=== PATIENT | male | born 1950 | race Caucasian/White ===

== ENCOUNTER 2022-10-09 08:46 | Outpatient (REF) | payer MEDICARE, SELFPAY ==
[2022-10-09 11:21] LABS: MANUAL DIFF FLAG NO
[2022-10-09 12:05] LABS: Basophils Absolute Auto 0.1 X10*3/uL (0.0-0.2); Basophils Percent Auto 1.1 % (0-2); Eosinophils Absolute Auto 0.3 X10*3/uL (0.0-0.4); Eosinophils Percent Auto 2.9 % (0-4); Hemoglobin 10.7 g/dl (14.0-18.0); Imm Gran Abs Auto 0.08 X10*3/uL (0.00-0.03); Imm Gran Pct Auto 0.9 % (0.0-0.4); Lymphocytes Percent Auto 32.5 % (20-40); Mean Corpuscular HGB Conc 30.6 g/dl (31.0-36.0); Mean Corpuscular Hemoglobin 24.7 pg (27.0-33.0); Mean Corpuscular Volume 80.8 fL (80.0-98.0); Mean Platelet Volume 9.8 fL (9.4-12.4); Monocytes Absolute Auto 1.1 X10*3/uL (0.1-1.2); Monocytes Percent Auto 11.7 % (2-11); Neutrophils Absolute Auto 4.7 x10*3/uL (2.0-8.3); Neutrophils Percent Auto 50.9 % (45-73); Platelet Count 484 X10*3/uL (160-400); Red Blood Count 4.33 X10*6/uL (4.60-5.80); Red Cell Distribution Width 15.9 % (11.0-16.0); White Blood Count 9.3 X10*3/uL (4.8-10.8)
[2022-10-09 12:09] LABS: Alanine Aminotransferase 16 U/L (0-40); Albumin Level 4.3 g/dL (3.5-5.0); Alkaline Phosphatase 42 U/L (39-117); Anion Gap 16 (12-20); Aspartate Amino Transferase 34 U/L (5-37); Bilirubin Total 0.6 mg/dL (0.0-1.0); Blood Urea Nitrogen 18 mg/dL (9-16); Carbon Dioxide 23 mmol/L (22-29); Chloride 105 mmol/L (96-108); Cholesterol 185 mg/dL; Estimated Glomerular Filt Rate 48; Glucose Fasting 111 mg/dL (60-99); HDL Cholesterol 69 mg/dL; LDL Cholesterol Calculated 98 mg/dl; Potassium 5.7 mmol/L (3.3-5.1); Sodium 138 mmol/L (135-145); Triglycerides 90 mg/dL
[2022-10-09 12:27] LABS: Prostate Specific Antigen Scr 1.07 ng/mL (<0.05-4.0); TSH reflex Free T4 1.54 uIU/mL (0.32-4.0)
== END 2022-10-09 08:47 | disposition home or self-care (01) ==
LOC: HO.HMGCLDS 08:46
PROVIDERS: PCP Nurse Practitioner Family; Visit Provider Nurse Practitioner Family
DX: Z00.00 Encounter for general adult medical examination without abnormal findings (principal); Z12.5 Encounter for screening for malignant neoplasm of prostate
CPT/HCPCS: 36415; 80053; 80061; 84153; 84443; 85025

== ENCOUNTER 2022-10-17 09:02 | Outpatient (REF) | payer MEDICARE, SELFPAY ==
[2022-10-17 11:32] LABS: Appearance Urine Clear; Color Urine Yellow; Glucose Urine UA Negative (Negative); Leukocyte Esterase Urine Negative (Negative); Nitrite Urine Negative (Negative); Urine Blood Negative (Negative); Urine Ketones Negative (Negative); Urine Protein Negative (Neg-Trace)
[2022-10-17 11:57] LABS: Alanine Aminotransferase 14 U/L (0-40); Albumin Level 4.3 g/dL (3.5-5.0); Alkaline Phosphatase 43 U/L (39-117); Anion Gap 15 (12-20); Aspartate Amino Transferase 28 U/L (5-37); Bilirubin Total 0.6 mg/dL (0.0-1.0); Blood Urea Nitrogen 20 mg/dL (9-16); Calcium 9.6 mg/dL (8.4-10.2); Carbon Dioxide 21 mmol/L (22-29); Chloride 110 mmol/L (96-108); Estimated Glomerular Filt Rate 55; Glucose Random 117 mg/dL (60-115); Iron 35 mcg/dL (45-160); Percent Iron Saturation 7 % (15-50); Potassium 5.5 mmol/L (3.3-5.1); Sodium 140 mmol/L (135-145); Total Iron Binding Capacity 535 mcg/dL (228-428); Unsaturated Iron Binding > 500 ug/dL
[2022-10-17 12:17] LABS: Ferritin 12 ng/mL (20-250); Folate 16.5 ng/mL (> or = 4.0); Vitamin B12 351 pg/mL (200-900)
== END 2022-10-17 09:03 | disposition home or self-care (01) ==
LOC: HO.HMGCLDS 09:02
PROVIDERS: PCP Nurse Practitioner Family; Visit Provider Nurse Practitioner Family
DX: Z00.00 Encounter for general adult medical examination without abnormal findings (principal); E87.5 Hyperkalemia; R79.89 Other specified abnormal findings of blood chemistry; D64.9 Anemia, unspecified
CPT/HCPCS: 36415; 80053; 81003; 82607; 82728; 82746; 83540

== ENCOUNTER 2022-10-21 10:24 | Outpatient (REF) | payer MEDICARE, SELFPAY ==
[2022-10-21 12:08] LABS: Anion Gap 17 (12-20); Carbon Dioxide 20 mmol/L (22-29); Chloride 108 mmol/L (96-108); Potassium 4.6 mmol/L (3.3-5.1); Sodium 140 mmol/L (135-145)
== END 2022-10-21 10:25 | disposition home or self-care (01) ==
LOC: HO.HMGCLDS 10:24
PROVIDERS: PCP Nurse Practitioner Family; Visit Provider Nurse Practitioner Family
DX: E87.5 Hyperkalemia (principal)
CPT/HCPCS: 36415; 80051

== ENCOUNTER 2023-03-03 09:07 | Outpatient (REF) | payer MEDICARE, SELFPAY ==
[2023-03-03 12:30] LABS: Alanine Aminotransferase 19 U/L (0-40); Albumin Level 4.2 g/dL (3.5-5.0); Alkaline Phosphatase 41 U/L (39-117); Anion Gap 17 (12-20); Aspartate Amino Transferase 42 U/L (5-37); Bilirubin Total 0.7 mg/dL (0.0-1.0); Blood Urea Nitrogen 13 mg/dL (9-16); Calcium 9.6 mg/dL (8.4-10.2); Carbon Dioxide 19 mmol/L (22-29); Chloride 104 mmol/L (96-108); Cholesterol 157 mg/dL; Estimated Glomerular Filt Rate > 60; Ferritin 19 ng/mL (20-250); Glucose Fasting 107 mg/dL (60-99); HDL Cholesterol 68 mg/dL; Iron 44 mcg/dL (45-160); LDL Cholesterol Calculated 72 mg/dl; Percent Iron Saturation 9 % (15-50); Potassium 4.6 mmol/L (3.3-5.1); Sodium 135 mmol/L (135-145); TSH reflex Free T4 1.09 uIU/mL (0.32-4.0); Total Iron Binding Capacity 486 mcg/dL (228-428); Total Protein 7.2 g/dL (6.5-8.0); Triglycerides 87 mg/dL; Unsaturated Iron Binding 442 ug/dL
== END 2023-03-03 09:08 | disposition home or self-care (01) ==
LOC: HO.HMGCLDS 09:07
PROVIDERS: PCP Nurse Practitioner Family; Visit Provider Nurse Practitioner Family
DX: D64.9 Anemia, unspecified (principal); E78.5 Hyperlipidemia, unspecified
CPT/HCPCS: 36415; 80053; 80061; 82728; 83540; 84443; 85025

== ENCOUNTER 2023-05-28 07:56 | Outpatient (REF) | payer MEDICARE, SELFPAY | END 2023-05-28 07:57 | disposition home or self-care (01) | LOC: HO.US 07:56 | PROVIDERS: PCP Nurse Practitioner Family; Visit Provider Internal Medicine | DX: I81 Portal vein thrombosis (principal); K70.9 Alcoholic liver disease, unspecified | CPT/HCPCS: 76705; 76981; 93975 ==

== ENCOUNTER 2023-07-21 08:13 | Day surgery (SDC) | payer MEDICARE, SELFPAY ==
[2023-07-15 09:59] VITALS: BMI 24.7
--- NOTE | 2023-07-16 08:14 | HO.ANESPROP2 ---
Documented by User: Dominga Paez NP 07/16/23 08:19 HPI - Anesthesia Eval Consult details Narrative: 73yo M for Upper Endoscopy and Colonoscopy ETOH abuse PMFSH Active Problems Active Problems: All Active Problems (Updated 07/15/23 @ 09:54 by Latha Santo RN) Screening for colon cancer (Acute) Environmental allergies (Acute) Smoker (Acute) Anemia (Acute) Elevated serum creatinine (Acute) Hyperkalemia (Acute) Rash (Acute) Physical exam (Acute) Hypomagnesemia (Acute) Screening PSA (prostate specific antigen) (Acute) Hypertension (Acute) Hyperlipidemia, unspecified (Acute) Acute gout of left ankle (Acute) Past Medical History Medical History Hx of staphylococcal infection Alcohol abuse TIA (transient ischemic attack) Portal vein thrombosis Hiatal hernia GERD (gastroesophageal reflux disease) Hyperlipidemia HTN (hypertension) Surgical History Surgical History History of bunionectomy History of esophagogastroduodenoscopy (EGD) H/O colonoscopy Social History Housing: House Patient Tobacco Use Status: Current everyday Tobacco user Tobacco use type: Cigarette Cigarette Packs Per Day: 0.5 Years Smoked: 55 Smoked in Last 30 Days: Yes e-Cigarette/Vaping Use: Never Used Patient Interested in Nicotine Replacement: No Second Hand Smoke Exposure: No Are you DNR?: No Advance Directives: No Advance Directives Information Provided: Yes Nutrition Risks: No Nutritional Risk Current occupational status: retired Cognitive needs: No Hearing needs: No Vision needs: No Meds Allergies Allergy/AdvReac Type Severity Reaction Status Date / Time No Known Allergies Allergy Verified 07/21/23 08:28 [No Known Allergies*] Home Medications Medication Instructions Recorded Confirmed Last Taken Type ferrous [id number] conc 1 cap PO DAILY 07/15/23 07/15/23 Unknown History capsule Exam Height,Weight and Vital Signs: Height 5 ft 4 in Weight 65.317 kg Pertinent Lab Results Pertinent Lab Results: Laboratory Tests 03/03/23 09:13 WBC 8.5 Hgb 11.8 L Hct 37.0 L Plt Count 442 H Sodium 135 Potassium 4.6 Chloride 104 Carbon Dioxide 19 L BUN 13 Creatinine 1.16 Laboratory Tests 03/03/23 09:13 Total Bilirubin 0.7 AST 42 H ALT 19 Alkaline Phosphatase 41 Total Protein 7.2 Albumin 4.2 Narrative Narrative: US abdomen comp w elastography 05/2023 IMPRESSION: 1. There is generalized increase in hepatic echotexture, consistent with fatty infiltration or hepatocellular disease. Please correlate clinically. A lobulated hepatic contour and periportal varices favors cirrhosis. No focal hepatic mass or intrahepatic biliary dilatation is seen. 2. Liver elastography: Although measurements are suggestive of compensated advanced chronic liver disease, there is statistical variability of the sampling which decreases accuracy. 3. The gallbladder is contracted and suboptimally evaluated. Assessment and Plan Assessment Anesthesia Assessment: Chart Reviewed Documented by User: Luis Fernando Portillo MD 07/21/23 08:47 [facility] Past Medical History Medical History Hx of staphylococcal infection Alcohol abuse TIA (transient ischemic attack) Portal vein thrombosis Hiatal hernia GERD (gastroesophageal reflux disease) Hyperlipidemia HTN (hypertension) Family History Family history of problems with anesthesia: No Surgical History Surgical History History of bunionectomy History of esophagogastroduodenoscopy (EGD) H/O colonoscopy History of Problems with Anesthesia: No Social History Housing: House Patient Tobacco Use Status: Current everyday Tobacco user Tobacco use type: Cigarette Cigarette Packs Per Day: 0.5 Years Smoked: 55 Smoked in Last 30 Days: Yes e-Cigarette/Vaping Use: Never Used Patient Interested in Nicotine Replacement: No Second Hand Smoke Exposure: No Are you DNR?: No Advance Directives: No Advance Directives Information Provided: Yes Nutrition Risks: No Nutritional Risk Current occupational status: retired Cognitive needs: No Hearing needs: No Vision needs: No Meds Allergies Allergy/AdvReac Type Severity Reaction Status Date / Time No Known Allergies Allergy Verified 07/21/23 08:28 [No Known Allergies*] Home Medications Medication Instructions Recorded Confirmed Last Taken Type ferrous [id number] conc 1 cap PO DAILY 07/15/23 07/15/23 Unknown History capsule Exam Airway Mallampati Class: II TM Dist: >3cm Neck ROM: Full Denture: Upper Loose/Missing/Broken Teeth: Yes (upper denture, lower teeth missing and rotten globally) Heart: [id number] Lungs: cta b/l Assessment and Plan Assessment Anesthesia Assessment: Anesthesia Plan Discussed Final Anesthetic Review Family History of Problems with Anesthesia: No History of Problems with Anesthesia: No NPO: Yes ASA Class: III Final Preanesthetic Review: No Changes in Pt Med Stat, Meds/Allgs Chart Reviewed, Consent Obtained/Reviewed and Anes Risks/Benef Reviewed Patient Risk: Intermediate Procedure Risk: Intermediate Assessment/Block/Sedation in SS: Assess/Block/Sedation-SS Anesthetic Plan Anesthetic Plan: MAC: and Agree w/ Assess. and Plan Disposition: Standard PACU
[2023-07-21] MEDS: Lactated Ringers 1,000 ML 100 ML IVCONT (08:35)
[2023-07-21 08:44] VITALS: BP 144/99; PULSE 87; RESP 18; TEMP 36.8; O2SAT 96
[2023-07-21 08:58] VITALS: BMI 24.0
[2023-07-21 09:55] VITALS: BP 141/84; PULSE 97; RESP 16; TEMP 36.7; O2SAT 97
--- NOTE | 2023-07-21 09:57 | PM.OP ---
Brief Operative Note Date of Service: 07/21/23 Pre-op diagnosis: Ojeda's, Screening Post-op diagnosis: other (Same, Portal gastropathy, Diverticulosis, Internal and External hemorrhoids) Procedure: EGD with biopsies, Colonoscopy to the cecum and TI Surgeon: Noah Burk MD Anesthesia: MAC Was an [employer] used for this Procedure?: No Estimated blood loss (mL): 2.0 Pathology: other (A. EG Junction at 35cm) Condition: stable Disposition: PACU
[2023-07-21 10:10] VITALS: BP 148/89; PULSE 105; RESP 20; TEMP 36.7; O2SAT 96
--- NOTE | 2023-07-21 11:38 | OP_ITS ---
DATE OF SERVICE: 07/21/2023 SURGEON: Noah Burk MD INDICATIONS: The patient presents for evaluation of gastroesophageal reflux with associated Ojeda's esophagus, personal history of colon polyps, and need for colorectal cancer screening. Full consent has been obtained from him for both procedures, including risks of bleeding and perforation. PREOPERATIVE DIAGNOSIS: POSTOPERATIVE DIAGNOSIS: PROCEDURE PERFORMED: Esophagogastroduodenoscopy with biopsies, and colonoscopy to the cecum and terminal ileum. ESTIMATED BLOOD LOSS: COMPLICATIONS: ANESTHESIA: Monitored anesthesia care. ASSISTANTS: SPECIMENS: PREOPERATIVE DIAGNOSES: Gastroesophageal reflux, history of Ojeda's esophagus, personal history of colon polyps, colorectal cancer screening, family history of colon cancer, and anemia. POSTOPERATIVE DIAGNOSES: Gastroesophageal reflux, history of Ojeda's esophagus, personal history of colon polyps, colorectal cancer screening, family history of colon cancer, and anemia, hiatal hernia, portal gastropathy, diverticulosis, internal and external hemorrhoids. DESCRIPTION OF PROCEDURE: The patient was placed in the left lateral decubitus position. The Olympus video gastroscope was passed in the posterior oropharynx and upper esophagus under direct vision. The scope was passed slowly into the distal esophagus. The gastroesophageal junction appeared at 35 cm. There was no sign of any esophagitis nor varices. There was a small area, less than 1 cm, of noncircumferential Ojeda's appearing mucosa. There were no lesions nor inflammation. The scope entered the stomach. There was a moderate-sized hiatal hernia. The scope was advanced to the pylorus and the duodenum was cannulated to the descending portion. The duodenum including the bulb appeared normal without mass or ulceration. The scope was withdrawn back to the stomach. The gastric antrum and body appeared normal other than some areas of edema and erythema. There were no masses nor ulceration. There was good peristalsis. The scope was retroflexed visualizing the proximal stomach carefully, which appeared consistent with a portal gastropathy with some friability of the mucosa. There was no evidence of varices, mass, nor ulceration. The scope was straightened and withdrawn back to the esophagus. There was no evidence of any esophageal varices. Biopsies were obtained from the area of Ojeda's mucosa. The remainder of the esophageal mucosa appeared normal. The scope was withdrawn from the patient. He was turned around for the colonoscopy. The digital rectal exam revealed no abnormalities other than prominent external hemorrhoids. The Olympus video pediatric colonoscope was entered into the rectum and advanced easily to the cecum. Once in the cecum, I did identify normal-appearing cecal pouch with appendiceal orifice and a normal-appearing ileocecal valve. The terminal ileum was cannulated and appeared normal. The scope was withdrawn back in the colon. The entire cecum and ileocecal valve appeared normal. The scope was slowly withdrawn assessing all mucosal surfaces carefully. Preparation was excellent. I did not visualize any sign of polyps, colitis, nor angiodysplasia. There was a moderate amount of sigmoid diverticulosis. In the rectum, scope was retroflexed visualizing internal hemorrhoids but no other pathology. The rectal mucosa appeared normal. Scope was straightened and withdrawn from the patient. He tolerated the procedures well and was returned to the recovery area in stable condition. IMPRESSION: 1. Ojeda's esophagus. 2. Hiatal hernia. 3. Portal gastropathy. 4. Diverticulosis. 5. Internal and external hemorrhoids. PLAN: The results of the pathology will be checked. He was advised to continue his daily omeprazole. He was advised to resume his aspirin in 72 hours. He was advised to avoid alcohol, smoking, and NSAIDs long-term. He did have some recent studies documenting his cirrhosis. 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 However, I will arrange for an outpatient MRI of his liver for further evaluation as well. Given his age and overall condition, I do not think he will need any further upper endoscopies nor colonoscopies from a screening standpoint. He was advised to see me again this Spring. This has been discussed with his . MD RISHI Mahoney/GORAN / [phone] BILLY
== END 2023-07-21 10:52 | disposition home or self-care (01) ==
PROVIDERS: PCP Nurse Practitioner Family; Visit Provider Internal Medicine
PROC: (CPT 43239; principal; 2023-07-21 08:40)
DX: Z12.11 Encounter for screening for malignant neoplasm of colon (principal); Z86.010 Personal history of colon polyps; K57.30 Diverticulosis of large intestine without perforation or abscess without bleeding; K64.8 Other hemorrhoids; K64.4 Residual hemorrhoidal skin tags; K22.70 Barrett's esophagus without dysplasia; K21.9 Gastro-esophageal reflux disease without esophagitis; K31.89 Other diseases of stomach and duodenum; K44.9 Diaphragmatic hernia without obstruction or gangrene; I10 Essential (primary) hypertension; E78.5 Hyperlipidemia, unspecified; Z86.73 Personal history of transient ischemic attack (TIA), and cerebral infarction without residual deficits; F10.10 Alcohol abuse, uncomplicated; Z79.899 Other long term (current) drug therapy; Z79.82 Long term (current) use of aspirin; F17.210 Nicotine dependence, cigarettes, uncomplicated
CPT/HCPCS: 43239; G0105; 88305; J2704

== ENCOUNTER 2023-08-27 08:00 | Outpatient (AMB) | payer MEDICARE, SELFPAY ==
--- NOTE | 2023-08-27 08:02 | A.OFFPC_ITS ---
Vital Signs 08/27/23 08:05 Height 5 ft 4 in Weight 145 lb BMI 24.9 BP 130/90 H Blood Pressure Location Lt brachial Position Sitting Pulse 98 Pulse Source Pulse Oximeter Pulse Oximetry (%) 98 Oxygen Delivery Method Room Air Intake Visit Reasons: PE Intake Note: Patient here for physical exam. no new issues or concerns. Allergies No Known Allergies [No Known Allergies*] Allergy (Verified 08/27/23 08:18) Medication List - Last Reconciled 08/27/23 by HARSHIL Le atorvastatin 20 mg PO DAILY clobetasol 0.05% 1 appl topical BID 2 weeks docusate sodium 100 mg PO BID 90 days fenofibrate nanocrystallized 145 mg PO DAILY ferrous [id number] conc 1 cap PO DAILY lisinopril 40 mg PO DAILY 90 days nifedipine ER 30 mg PO DAILY omeprazole 20 mg PO DAILY Tobacco use date assessed: 01/02/23 Fall risk assessment: No Falls in past year Last assessed Fall Risk: 08/27/23 Dental Screening Dental Screen Date: 08/27/23 Did you have a dental visit in the last 12 months?: No Did you have a dental problem in the last 6 months where you did not have access to dental care?: No Was dental information given to patient?: Patient has dentist HPI PE HPI Details here for a PE. Recent colon screen/endoscopy, pt sees GI. Pt is a smoker, refuses LDCTs. Pt reports taking his BP meds just before arriving here. pt refuses VANNESA today. PSA ordered. [facility] Medical History Barretts esophagus Hx of staphylococcal infection Alcohol abuse TIA (transient ischemic attack) Portal vein thrombosis Hiatal hernia GERD (gastroesophageal reflux disease) Hyperlipidemia HTN (hypertension) Surgical History History of bunionectomy History of esophagogastroduodenoscopy (EGD) H/O colonoscopy Social History Housing: House Patient Tobacco Use Status: Current everyday Tobacco user Tobacco use type: Cigarette Cigarette Packs Per Day: 0.5 Years Smoked: 55 e-Cigarette/Vaping Use: Never Used Second Hand Smoke Exposure: No service: No Current occupational status: retired Cognitive needs: No Hearing needs: No Vision needs: No Questionnaire Thrive Questionnaire Date Thrive assessed: 02/07/22 AUDIT C Alcohol Use Questionnaire (AUDIT-C) 1. How often do you have a drink containing alcohol?: 4 or more times a week 2. How many drinks containing alcohol do you have on a typical day when you are drinking?: 3 or 4 3. How often do you have six or more drinks on one occasion?: Never Total Score: 5 Score Reviewed/Action Taken: Yes FLORENCE-7 AMB Questionnaire FLORENCE-7 Date FLORENCE - 7 assessed: 08/27/23 Source: Developed by Drs. Noah Bennett, Gaviota Funes, Stevan Jara and colleagues, with an educational yung from [employer]. Review of Systems Const Denies chills and Denies fever(s) Eyes Denies blurry vision ENT Denies vertigo, Denies dizziness and Denies sore throat Card Denies chest pain at rest, Denies chest pain with activity, Denies diaphoresis, Denies dyspnea and Denies dyspnea on exertion Resp Denies cough, Denies dyspnea, Denies dyspnea on exertion and Denies wheezing GI Denies abdominal pain, Denies melena, Denies hematochezia, Denies constipation, Denies diarrhea and Denies loose stools Denies hematuria Musc Denies numbness and Denies tingling Skin/Breast Denies lesions Neuro Denies vertigo, Denies dizziness, Denies numbness and Denies tingling Psych Denies anxiety, Denies depression, Denies homicidal ideation, Denies suicidal ideation and Denies other (substance abuse) Aller/Immun Denies wheezing Physical exam (Primary Care) Vital Signs: Last Vital Signs Pulse 98 08/27/23 08:05 BP 130/90 H 08/27/23 08:05 Pulse Ox 98 08/27/23 08:05 Oxygen Delivery Method Room Air 08/27/23 08:05 BMI result Body Mass Index 24.9 Tobacco/Smoking Status: Tobacco use Status Tobacco use date assessed 01/02/23 08/27/23 08:05 Patient Tobacco Use Status Current everyday Tobacco 08/27/23 08:05 Tobacco use type Cigarette 08/27/23 08:05 e-Cigarette/Vaping Use Never Used 08/27/23 08:05 Thrive Assessment: Date of Thrive Assessment Date Thrive assessed 02/07/22 08/27/23 08:05 Const General: cooperative Nutritional Appearance: well nourished Orientation/consciousness: patient oriented x3 HENMT Head: Yes normal to inspection, Yes normocephalic and Yes atraumatic Ears: TM normal on the right and TM normal on the left Eyes General: appearance normal, both eyes and all related structures Alignment and Position: alignment normal and position normal Neck Neck: Yes normal visual inspection and Yes no lymphadenopathy Resp Effort & Inspection: normal respiratory effort Auscultation: clear to auscultation bilaterally Cardio Rate: regular rate Rhythm: regular rhythm Heart sounds: S1 normal heart sound present, S2 normal heart sound present and no murmurs GI Palpation (GI): Soft to palpation and nontender Auscultation: normal bowel sounds Male General Exam: Yes normal external exam Penis: normal penis Scrotum: scrotum normal, testes descended bilaterally and no inguinal hernias Testes: no testicular mass Skin Rashes: no rashes Neuro General: patient oriented x3, moves all extremities, no focal motor deficits and deep tendon reflexes 2+ bilaterally Romberg Test: Negative Extrem Right lower extremity: no edema Left lower extremity: no edema Psych Affect: normal affect Attitude: cooperative Thought process: Normal thought process present Assessment and Plan Assessment & Plan (1) Physical exam: Code(s): Z00.00 - Encounter for general adult medical examination without abnormal findings (2) Screening PSA (prostate specific antigen): Code(s): Z12.5 - Encounter for screening for malignant neoplasm of prostate Orders: Orders TSH reflex Free T4 Today Z00.00 - Encounter for general adult medical examination without abnormal findings UA CC w/rflx Micro + Cult Today Z00.00 - Encounter for general adult medical examination without abnormal findings Lipid Panel Today Z00.00 - Encounter for general adult medical examination without abnormal findings Complete Blood Count Auto Diff Today Z00.00 - Encounter for general adult medical examination without abnormal findings Comprehensive [place]. Panel Fast Today Z00.00 - Encounter for general adult medical examination without abnormal findings Prostate Specific Antigen Scr Today Z12.5 - Encounter for screening for malignant neoplasm of prostate Coding Level of Care Code Est Pt Prev Care >65y(94345) Diagnoses Physical exam Z00. Screening PSA (prostate specific antigen) Z12.5
[2023-08-27 08:05] VITALS: BP 130/90; PULSE 98; O2SAT 98; BMI 24.9
== END 2023-08-27 08:32 | disposition home or self-care (01) ==
PROVIDERS: Visit Provider Nurse Practitioner Family
DX: Z00.00 Encounter for general adult medical examination without abnormal findings (principal); Z12.5 Encounter for screening for malignant neoplasm of prostate
CPT/HCPCS: 99397

== ENCOUNTER 2023-12-09 08:30 | Outpatient (REF) | payer MEDICARE, SELFPAY ==
[2023-12-09 10:21] LABS: MANUAL DIFF FLAG NO
[2023-12-09 10:37] LABS: Basophils Absolute Auto 0.1 X10*3/uL (0.0-0.2); Basophils Percent Auto 0.6 % (0-2); Eosinophils Absolute Auto 0.2 X10*3/uL (0.0-0.4); Eosinophils Percent Auto 1.5 % (0-4); Hematocrit 42.7 % (42.0-52.0); Hemoglobin 14.1 g/dl (14.0-18.0); Imm Gran Abs Auto 0.17 X10*3/uL (0.00-0.03); Imm Gran Pct Auto 1.4 % (0.0-0.4); Lymphocytes Percent Auto 25.6 % (20-40); Mean Corpuscular Hemoglobin 30.3 pg (27.0-33.0); Mean Corpuscular Volume 91.6 fL (80.0-98.0); Mean Platelet Volume 10.2 fL (9.4-12.4); Monocytes Absolute Auto 1.4 X10*3/uL (0.1-1.2); Neutrophils Absolute Auto 6.9 x10*3/uL (2.0-8.3); Neutrophils Percent Auto 58.9 % (45-73); Platelet Count 423 X10*3/uL (160-400); Red Blood Count 4.66 X10*6/uL (4.60-5.80); White Blood Count 11.8 X10*3/uL (4.8-10.8)
[2023-12-09 10:54] LABS: Alanine Aminotransferase 14 U/L (0-40); Albumin Level 4.2 g/dL (3.5-5.0); Alkaline Phosphatase 49 U/L (39-117); Anion Gap 17 (12-20); Aspartate Amino Transferase 21 U/L (5-37); Bilirubin Total 0.7 mg/dL (0.0-1.0); Blood Urea Nitrogen 19 mg/dL (9-16); Calcium 9.9 mg/dL (8.4-10.2); Carbon Dioxide 22 mmol/L (22-29); Chloride 104 mmol/L (96-108); Cholesterol 163 mg/dL (<200); Estimated Glomerular Filt Rate 55; Glucose Fasting 120 mg/dL (60-99); HDL Cholesterol 63 mg/dL (>40); LDL Cholesterol Calculated 79 mg/dL (<100); Potassium 4.7 mmol/L (3.3-5.1); Sodium 138 mmol/L (135-145); Total Protein 7.5 g/dL (6.5-8.0); Triglycerides 105 mg/dL (<150)
[2023-12-09 11:12] LABS: Prostate Specific Antigen Scr 1.17 ng/mL (<0.05-4.0)
[2023-12-09 11:22] LABS: TSH reflex Free T4 0.89 uIU/mL (0.32-4.0)
== END 2023-12-09 08:31 | disposition home or self-care (01) ==
LOC: HO.HMGCLDS 08:30
PROVIDERS: PCP Nurse Practitioner Family; Visit Provider Nurse Practitioner Family
DX: Z00.00 Encounter for general adult medical examination without abnormal findings (principal); Z12.5 Encounter for screening for malignant neoplasm of prostate
CPT/HCPCS: 36415; 80053; 80061; 84153; 84443; 85025

== ENCOUNTER 2023-12-30 09:20 | Outpatient (REF) | payer MEDICARE, SELFPAY ==
[2023-12-30 10:19] LABS: MANUAL DIFF FLAG NO
[2023-12-30 10:32] LABS: Basophils Absolute Auto 0.1 X10*3/uL (0.0-0.2); Basophils Percent Auto 0.7 % (0-2); Eosinophils Absolute Auto 0.3 X10*3/uL (0.0-0.4); Hemoglobin 13.6 g/dl (14.0-18.0); Imm Gran Abs Auto 0.16 X10*3/uL (0.00-0.03); Imm Gran Pct Auto 1.6 % (0.0-0.4); Lymphocytes Absolute Auto 3.1 X10*3/uL (1.2-4.9); Lymphocytes Percent Auto 31.3 % (20-40); Mean Corpuscular Hemoglobin 30.7 pg (27.0-33.0); Mean Corpuscular Volume 90.3 fL (80.0-98.0); Mean Platelet Volume 10.1 fL (9.4-12.4); Monocytes Absolute Auto 1.2 X10*3/uL (0.1-1.2); Monocytes Percent Auto 11.5 % (2-11); Neutrophils Absolute Auto 5.2 x10*3/uL (2.0-8.3); Neutrophils Percent Auto 51.9 % (45-73); Platelet Count 401 X10*3/uL (160-400); Red Blood Count 4.43 X10*6/uL (4.60-5.80); Red Cell Distribution Width 14.6 % (11.0-16.0)
== END 2023-12-30 09:21 | disposition home or self-care (01) ==
LOC: HO.HMGCLDS 09:20
PROVIDERS: PCP Nurse Practitioner Family; Visit Provider Nurse Practitioner Family
DX: D72.829 Elevated white blood cell count, unspecified (principal)
CPT/HCPCS: 36415; 85025

== ENCOUNTER 2024-04-27 13:46 | Emergency (ER) | payer MEDICARE, SELFPAY ==
--- NOTE | ~2024-04-27 | CT_ITS ---
EXAMINATION: CT ABDOMEN AND PELVIS WITH CONTRAST CLINICAL INFORMATION: abdo pain, hx of prtal vein thrombosis COMPARISON: CT abdomen and pelvis October 30, 2018 MRA abdomen November 03, 2018 TECHNIQUE: Multidetector volumetric images were obtained from the superior aspect of the liver through the pubic symphysis following administration 85 mL of Omnipaque 350 intravenous contrast. Sagittal and coronal reformatted images were obtained on the technologist's workstation. Oral contrast: No This CT examination was performed using dose optimization techniques as appropriate, variously including the following: *Automated exposure control *Adjustment of mA and/or kV according to patient size (this includes techniques or standardized protocols for targeted exams where dose is matched to indication/reason for exam; i.e. extremities or head) *Use of iterative reconstruction technique DLP: 356 mGy-cm FINDINGS: LUNG BASES: The visualized lung bases are unremarkable. LIVER, GALLBLADDER, AND BILIARY TREE: The liver is normal in size, shape, and attenuation. No focal hepatic lesion or biliary ductal dilatation is present. The gallbladder is unremarkable with no evidence of radiopaque gallstones, gallbladder wall thickening, or obvious pericholecystic inflammatory changes. PANCREAS: Unremarkable. SPLEEN: Unremarkable. ADRENAL GLANDS: Unremarkable. KIDNEYS AND URETERS: The kidneys are normal in size, shape, and attenuation. No hydronephrosis, hydroureter, or calculi seen. No perinephric stranding. BLADDER: Unremarkable. GASTROINTESTINAL TRACT: There are scattered diverticula of the colon. There is no diverticulitis. There is no bowel wall thickening /edema. There is no bowel obstruction. There is a moderate to large volume of stool in the colon. The appendix is normal . The small bowel loops are unremarkable. There is diffuse thickening of the wall of the stomach most pronounced at the antrum. This is similar to CAT scan October 30, 2018. No surrounding inflammation. There is no hiatal hernia. ABDOMINAL WALL: No significant hernia is appreciated. LYMPH NODES: Normal. VASCULAR: Chronic changes of thrombosed portal vein with cavernous transformation of the portal vein. Multiple varices at the farheen hepatis. Vascular calcifications of aorta and iliac arteries without aneurysm. PELVIC VISCERA: The prostate measures 4 cm transverse. OSSEOUS STRUCTURES: Unremarkable. CT/CT abdomen pelvis w IV con IMPRESSION: 1. No acute abnormality CT scan abdomen pelvis. 2. 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 3. Diffuse thickening of the wall of the stomach most pronounced at the antrum. This is similar to CAT scan October 30, 2018. No surrounding inflammation. 4. Diverticulosis of colon. No acute change of the bowel. Fleischner guidelines were followed. Electronically signed by: Alfonso Wall MD 04/27/2024 06:21 PM EDT
--- NOTE | ~2024-04-27 | XR_ITS ---
EXAMINATION: XR CHEST CLINICAL INFORMATION: Chest pain COMPARISON: Chest x-ray 02/01/2020 TECHNIQUE: 2 views of the chest were obtained. FINDINGS: No significant abnormality is noted involving the heart, lungs, mediastinum, bony thorax or soft tissues. XR/XR chest 2V IMPRESSION: Unremarkable examination. Electronically signed by: Alfonso Wall MD 04/27/2024 02:54 PM EDT RP
--- NOTE | 2024-04-27 13:52 | ED_ITS ---
HPI - General Adult General Chief complaint: Upper Respiratory Symptoms Stated complaint: SOB, abd pain Time Seen by Provider: 04/27/24 15:18 History of Present Illness ED Provider: Amalia OGDEN narrative: The patient is a 73-year-old male with a history of alcoholism. He also has a history of portal vein thrombosis. He is also a smoker. The patient was diagnosed with portal vein thrombosis in 2019 and he was on warfarin for awhile. He says that the warfarin was stopped some time ago. His current medications are atorvastatin, omeprazole, fenofibrate, nifedipine, and lisinopril. Apparently the patient has been feeling less energetic and fatigued for a couple of months. He has had a slight cough. Over the last 2 weeks he thought he might have a bad cold. He has been sneezing as well as coughing. Additionally over the past 5 days he has had intermittent abdominal pains that remind him of symptoms he had when he was diagnosed with a portal vein thrombosis 5 years ago. For all these reasons he called his regular doctor's office this morning and was advised to come to the emergency room. No definite fever. He has had a cough but no sputum. No vomiting. No diarrhea. No pain or swelling in his legs. The patient is a smoker who still smokes. He has a history of alcoholism. He drinks 4 or 5 beers a day Related Data Home Medications ?Medication ?Instructions ?Recorded ?Confirmed ferrous [id number] 1 cap PO DAILY 07/15/23 08/27/23 capsule Previous Rx's ?Medication ?Instructions ?Recorded clobetasol 0.05 % topical cream 1 appl topical BID 2 weeks #30 10/16/22 grams docusate sodium 100 mg capsule 100 mg PO BID 90 days #180 caps 01/17/23 omeprazole 20 mg capsule,delayed 20 mg PO DAILY #90 caps 09/21/23 release lisinopril 40 mg tablet 40 mg PO DAILY 90 days #90 tabs 02/16/24 nifedipine 30 mg tablet,extended 30 mg PO DAILY #90 tabs 02/16/24 release atorvastatin 20 mg tablet 20 mg PO DAILY #90 tabs 03/09/24 fenofibrate nanocrystallized 145 145 mg PO DAILY #90 tabs 03/09/24 mg tablet Allergies Allergy/AdvReac Type Severity Reaction Status Date / Time No Known Allergies Allergy Verified 04/27/24 13:56 [No Known Allergies*] Review of Systems 2 Review of Systems: Yes all other systems are reviewed and are negative [facility] Past Medical History Medical History Barretts esophagus Hx of staphylococcal infection Alcohol abuse TIA (transient ischemic attack) Portal vein thrombosis Hiatal hernia GERD (gastroesophageal reflux disease) Hyperlipidemia HTN (hypertension) Surgical History History of bunionectomy History of esophagogastroduodenoscopy (EGD) H/O colonoscopy Social History Social History Housing: House Patient Tobacco Use Status: Current everyday Tobacco user Tobacco use type: Cigarette Cigarette Packs Per Day: 0.5 Years Smoked: 55 Smoked in Last 30 Days: Yes e-Cigarette/Vaping Use: Never Used Second Hand Smoke Exposure: No Use of substances other than those prescribed or required for medical reasons: No Advance Directives: No Advance Directives Information Provided: No Do you have a plan to hurt others: No Plan service: No Current occupational status: retired Cognitive needs: No Hearing needs: No Vision needs: No Physical Exam ED Vital Signs: Vital Signs - 24 hr 04/27/24 13:53 04/27/24 15:49 04/27/24 15:50 Temperature 98 F 98.2 F Pulse Rate 99 89 Respiratory Rate 19 16 Blood Pressure 134/93 H 151/88 H Pulse Oximetry 98 96 96 Oxygen Delivery Method Room Air Room Air 04/27/24 16:22 04/27/24 18:50 Temperature 96.4 F L 97.2 F Pulse Rate 84 98 Respiratory Rate 14 14 Blood Pressure 168/98 H 146/85 H Pulse Oximetry 97 96 Oxygen Delivery Method Room Air Room Air BMI result Body Mass Index 23.5 Const Other: The patient is a slim 73-year-old male. He has an occasional dry cough. He does not seem in any respiratory distress. He looks somewhat chronically ill but not obviously acutely ill. HENMT Other: Face is symmetrical. Mucous membranes moist. Eyes General: appearance normal, both eyes and all related structures Sclerae: sclerae normal Pupils: Equal, round and reactive pupils present EOM: EOMs intact bilaterally Neck Neck: Yes no JVD Resp Other: No increased work of breathing. Slight scattered wheezes bilaterally. No definite crackles. GI Other: The abdomen is flat and soft. There is some mild diffuse tenderness without focal tenderness, rebound, or guarding Skin Other: Skin is sallow, pale and dry Neuro Other: The patient is awake and alert. Cognition seems intact. Cranial nerves are grossly intact. He moves his extremities normally and appropriately and seemed to have no focal findings. Cranial nerves: Yes Equal, round and reactive pupils present Extrem Other: No calf swelling or tenderness, no peripheral edema, no asymmetry Course Course Course Narrative: RME, this is a rapid medical exam performed by Jose Armando Singh please refer to primary provider for complete H&P- 73-year-old male presents for evaluation of shortness of breath, cough with phlegm production, postnasal drip as well as abdominal pain. He reports a history of portal vein thrombosis and reports that his symptoms feel similar as he also abdominal discomfort. He was sent from urgent care due to his history of portal vein thrombosis. Plan for labs, viral swabs, chest x-ray. Medications Administered Discontinued Medications Generic Name Dose Route Start Last Admin Trade Name Freq PRN Reason Stop Dose Admin Sodium Chloride 1,000 mls @ 999 mls/hr 04/27/24 15:45 04/27/24 17:32 Ns IV 04/27/24 16:45 Infused .Q1H1M DELICIA Infusion Iohexol 85 ml 04/27/24 16:15 04/27/24 16:15 Iohexol 350 Mg/Ml 100 Ml Infus..Btl IV 04/27/24 16:16 85 ml ONCE ONE Administration Medical Decision Making Medical Decision Making [facility] Narrative: The patient is a 73-year-old male. He apparently has a history of having had a portal vein thrombosis. He was on warfarin for awhile but eventually he was taken off anticoagulation. Presents because he has had some intermittent abdominal pains that made him concerned about the possibility of recurrence of his abdominal blood clot. He has also had some coughing. He is still a smoker. He still drinks a fair amount of alcohol. He reports he drinks 4-5 beers per day. Clinically the patient does not appear obviously significantly ill although he looks fairly chronically ill. His chest x-ray was negative. Viral serology is negative for COVID, RSV, and influenza. He has a normal white count with an unremarkable differential. Coagulation studies are normal. Chemistries reveal a sodium of 125. His BUN and creatinine are not significantly abnormal. I suspect his hyponatremia is likely related to his volume of beer drinking. LFT show a normal bilirubin, AST 45, ALT 25, alk phos 48. CRP mildly abnormal at 3.75. Lipase mildly elevated at 130. A TSH was done because he reports chronic weakness over the last few months. His TSH is normal. An abdominal CT shows: IMPRESSION: 1. No acute abnormality CT scan abdomen pelvis. 2. 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 3. Diffuse thickening of the wall of the stomach most pronounced at the antrum. This is similar to CAT scan October 30, 2018. No surrounding inflammation. 4. Diverticulosis of colon. No acute change of the bowel. The patient was given 1 L of IV normal saline. Overall he does not seem to have any acute findings on his workup and he seems appropriate for discharge. He was told to try to reduce his beer intake as this seems to be causing hyponatremia. He is encouraged to reduce smoking. He should follow up with his PCP and probably revisit with a meat molder. Lab Data 04/27/24 14:01 04/27/24 14:01 Labs: Lab Results 04/27/24 04/27/24 Range/Units 14:01 15:45 WBC 9.2 (4.8-10.8) X10*3/uL RBC 4.27 L (4.60-5.80) X10*6/uL Hgb 13.1 L (14.0-18.0) g/dl Hct 37.4 L (42.0-52.0) % MCV 87.6 (80.0-98.0) fL MCH 30.7 (27.0-33.0) pg MCHC 35.0 (31.0-36.0) g/dl RDW 13.8 (11.0-16.0) % Plt Count 348 (160-400) X10*3/uL MPV 8.9 L (9.4-12.4) fL Immature Gran % (Auto) 1.9 H (0.0-0.4) % Neut % (Auto) 63.2 (45-73) % Lymph % (Auto) 21.7 (20-40) % [place] % (Auto) 11.3 H (2-11) % Eos % (Auto) 1.2 (0-4) % Baso % (Auto) 0.7 (0-2) % Lymph # (Auto) 2.0 (1.2-4.9) X10*3/uL [place] # (Auto) 1.0 (0.1-1.2) X10*3/uL Eos # (Auto) 0.1 (0.0-0.4) X10*3/uL Baso # (Auto) 0.1 (0.0-0.2) X10*3/uL Abs Immat Gran (auto) 0.17 H (0.00-0.03) X10*3/uL Absolute Neuts (auto) 5.8 (2.0-8.3) x10*3/uL Absolute Nucleated RBC 0.000 (0.0-0.012) X10*3/uL Nucleated RBC % (auto) 0.0 (0.0-0.2) /100WBC PT 12.2 (11.1-13.3) SEC INR 1.0 (0.9-1.1) APTT 27.2 (26.0-36.8) SEC Sodium 125 L (135-145) mmol/L Potassium 4.3 (3.3-5.1) mmol/L Chloride 94 L (96-108) mmol/L Carbon Dioxide 20 L (22-29) mmol/L Anion Gap 15 (12-20) BUN 11 (9-16) mg/dL Creatinine 1.17 (0.5-1.4) mg/dL Estim Creat Clear Calc 47.0 Estimated GFR > 60 Random Glucose 139 H (60-115) mg/dL Calcium 9.8 (8.4-10.2) mg/dL Total Bilirubin 0.5 (0.0-1.0) mg/dL AST 45 H (5-37) U/L ALT 25 (0-40) U/L Alkaline Phosphatase 48 (39-117) U/L C-Reactive Protein 3.75 H (< or = 0.50) mg/dL Total Protein 7.2 (6.5-8.0) g/dL Albumin 4.1 (3.5-5.0) g/dL Lipase 130 H (8-78) U/L TSH 0.76 (0.32-4.0) uIU/mL Urine Color Yellow Urine Appearance Clear Urine pH 5.5 (5.0-9.0) Ur Specific [place] 1.010 (1.005-1.025) Urine Protein 30 (1+) H (Neg-Trace) mg/dL Urine Glucose (UA) Negative (Negative) mg/dL Urine Ketones Negative (Negative) mg/dL Urine Blood Negative (Negative) Urine Nitrite Negative (Negative) Ur Leukocyte Esterase Negative (Negative) Urine RBC 0-2 (0-2) /HPF Urine WBC 0-5 (0-5) /HPF Ur Squamous Epith Cells 0-2 (0-2) /HPF Urine Bacteria None Seen (None Seen) Hyaline Casts 0-2 (0-2) /LPF Urine Osmolality 225 L (373-1093) mosm/kg Ur Random Sodium < 20.0 mmol/L Urine Creatinine 78.76 mg/dL Ethyl Alcohol < 10 mg/dL Influenza Type A (PCR) NEGATIVE (Negative) Influenza Type B (PCR) NEGATIVE (Negative) RSV RNA Qual (PCR) NEGATIVE (Negative) SARS-CoV-2 RNA (RT-PCR) NEGATIVE (Negative) Discharge Plan Discharge Clinical Impression: Hyponatremia, Abdominal pain, Cough Patient Disposition: Home, Self-Care Additional Instructions: Your testing in the emergency room today is not finding anything acutely dangerous. However your sodium level in your blood is lower than it should be (not so low that you need to be hospitalized but fairly low nonetheless). I think the low- sodium in your blood is probably a result of the amount of beer your drink. Please try to reduce your beer drinking. I would also recommend trying to reduce or eliminate smoking. Please contact your regular doctor's office tomorrow morning to arrange a prompt follow up appointment to discuss your symptoms and the findings today further. Return to the emergency room if you feel significantly worse. Prescriptions: No Action clobetasol 0.05 % cream 1 appl topical BID 14 Days Qty: 30 2RF docusate sodium 100 mg capsule 100 mg PO BID 90 Days Qty: 180 1RF omeprazole 20 mg capsule,delayed release(DR/EC) 20 mg PO DAILY Qty: 90 1RF nifedipine 30 mg tablet extended release 30 mg PO DAILY Qty: 90 1RF lisinopril 40 mg tablet 40 mg PO DAILY 90 Days Qty: 90 1RF fenofibrate nanocrystallized 145 mg tablet 145 mg PO DAILY Qty: 90 1RF atorvastatin 20 mg tablet 20 mg PO DAILY Qty: 90 1RF Iron Complex/C/B12 Capsule 1 cap PO DAILY Interventions: ED Discharge Assessment Last Done: 04/27/24 18:50 Discharge Date/Time: 04/27/24 18:51 Print Language: Yoruba
[2024-04-27 13:53] VITALS: BP 134/93; PULSE 99; RESP 19; TEMP 36.6; O2SAT 98; BMI 23.5
[2024-04-27 14:06] LABS: MANUAL DIFF FLAG NO
[2024-04-27 14:08] LABS: Basophils Absolute Auto 0.1 X10*3/uL (0.0-0.2); Basophils Percent Auto 0.7 % (0-2); Eosinophils Absolute Auto 0.1 X10*3/uL (0.0-0.4); Eosinophils Percent Auto 1.2 % (0-4); Hematocrit 37.4 % (42.0-52.0); Hemoglobin 13.1 g/dl (14.0-18.0); Imm Gran Abs Auto 0.17 X10*3/uL (0.00-0.03); Imm Gran Pct Auto 1.9 % (0.0-0.4); Lymphocytes Percent Auto 21.7 % (20-40); Mean Corpuscular Hemoglobin 30.7 pg (27.0-33.0); Mean Corpuscular Volume 87.6 fL (80.0-98.0); Mean Platelet Volume 8.9 fL (9.4-12.4); Monocytes Percent Auto 11.3 % (2-11); Neutrophils Absolute Auto 5.8 x10*3/uL (2.0-8.3); Neutrophils Percent Auto 63.2 % (45-73); Platelet Count 348 X10*3/uL (160-400); Red Blood Count 4.27 X10*6/uL (4.60-5.80); Red Cell Distribution Width 13.8 % (11.0-16.0); White Blood Count 9.2 X10*3/uL (4.8-10.8)
[2024-04-27 14:13] LABS: Prothrombin Time 12.2 SEC (11.1-13.3)
[2024-04-27 14:15] LABS: Partial Thromboplastin Time 27.2 SEC (26.0-36.8)
[2024-04-27 14:25] LABS: Alanine Aminotransferase 25 U/L (0-40); Albumin Level 4.1 g/dL (3.5-5.0); Alkaline Phosphatase 48 U/L (39-117); Anion Gap 15 (12-20); Aspartate Amino Transferase 45 U/L (5-37); Bilirubin Total 0.5 mg/dL (0.0-1.0); Blood Urea Nitrogen 11 mg/dL (9-16); Calcium 9.8 mg/dL (8.4-10.2); Carbon Dioxide 20 mmol/L (22-29); Chloride 94 mmol/L (96-108); Estimated Glomerular Filt Rate > 60; Glucose Random 139 mg/dL (60-115); Lipase 130 U/L (8-78); Potassium 4.3 mmol/L (3.3-5.1); Sodium 125 mmol/L (135-145); Total Protein 7.2 g/dL (6.5-8.0)
[2024-04-27 15:14] LABS: Influenza A PCR NEGATIVE (Negative); Influenza B PCR NEGATIVE (Negative); Resp Syncy Virus RNA Qual PCR NEGATIVE (Negative); SARS COV2 PCR INHOUSE NEGATIVE (Negative)
[2024-04-27 15:49] VITALS: O2SAT 96
[2024-04-27 15:50] VITALS: BP 151/88; PULSE 89; RESP 16; TEMP 36.8; O2SAT 96
[2024-04-27 15:54] LABS: Appearance Urine Clear; Color Urine Yellow; Glucose Urine UA Negative (Negative); Leukocyte Esterase Urine Negative (Negative); Nitrite Urine Negative (Negative); PH 5.5 (5.0-9.0); UMIC TRIGGER UACC YES; Urine Blood Negative (Negative); Urine Ketones Negative (Negative); Urine Protein 30 (1+) mg/dL (Neg-Trace)
[2024-04-27] MEDS: 0.9 % Sodium Chloride 1,000 ML 999 ML IV (15:57)
--- NOTE | 2024-04-27 15:57 | ECG_ITS ---
Test Reason : weakness Blood Pressure : / mmHG Vent. Rate : 083 BPM Atrial Rate : 083 BPM P-R Int : 158 ms QRS Dur : 110 ms QT Int : 378 ms P-R-T Axes : 064 054 060 degrees QTc Int : 444 ms Normal sinus rhythm Normal ECG When compared with ECG of 01-FEB-2020 10:39, No significant change was found Referred By: Paul Holland Electronically Signed By:MAURICE VILLEGAS
[2024-04-27 16:00] LABS: Bacteria Urine None Seen (None Seen); Hyaline Casts Urine 0-2 /LPF (0-2); RBC Urine 0-2 /HPF (0-2); Squamous Epithelial Cell Urine 0-2 /HPF (0-2); WBC Urine 0-5 /HPF (0-5)
[2024-04-27 16:05] LABS: Osmolality Urine 225 mosm/kg (373-1093)
[2024-04-27 16:10] LABS: Creatinine Urine 78.76 mg/dL; Sodium Urine Random < 20.0 mmol/L
[2024-04-27] MEDS: iohexoL 350 MG/ML 100 ML INFUS..BTL 85 ML IV (16:15)
[2024-04-27 16:22] VITALS: BP 168/98; PULSE 84; RESP 14; TEMP 35.8; O2SAT 97
[2024-04-27 16:50] LABS: C Reactive Protein 3.75 mg/dL (< or = 0.50); Ethanol < 10 mg/dL
[2024-04-27 17:06] LABS: Thyroid Stimulating Hormone 0.76 uIU/mL (0.32-4.0)
--- NOTE | 2024-04-27 17:10 | PC.NURSE ---
Per Solange Gomez MD, this RN ambulated pt. to assess SPO2. Pt.'s SPO2 was 96% throughout our walk. aware, pt. will be going up for discharge momentarily.
[2024-04-27 18:50] VITALS: BP 146/85; PULSE 98; RESP 14; TEMP 36.2; O2SAT 96
== END 2024-04-27 18:51 | disposition home or self-care (01) ==
PROVIDERS: Physician Assistant; Emergency Provider Emergency Medicine; PCP Nurse Practitioner Family
DX: E87.1 Hypo-osmolality and hyponatremia (principal); R06.02 Shortness of breath; R05.9 Cough, unspecified; R10.9 Unspecified abdominal pain; R07.89 Other chest pain; R11.2 Nausea with vomiting, unspecified; F17.210 Nicotine dependence, cigarettes, uncomplicated; Z03.818 Encounter for observation for suspected exposure to other biological agents ruled out; Z51.81 Encounter for therapeutic drug level monitoring
CPT/HCPCS: 0241U; 36415; 71046; 74177; 80053; 80307; 81001; 82570; 83690; 83935; 84300; 84443; 85025; 85610; 85730; 86140; 87449; 93005; 96360; 96361; 99284; 99285; Q9967

== ENCOUNTER 2024-05-20 08:14 | Outpatient (AMB) | payer MEDICARE, SELFPAY ==
--- NOTE | 2024-05-20 07:30 | MHC.PC.OV ---
Intake Visit Reasons: ED follow up Allergies No Known Allergies [No Known Allergies*] Allergy (Verified 04/27/24 13:56) Tobacco use date assessed: 01/02/23 Dental Screening Dental Screen Date: 08/27/23 HPI ED follow up HPI Details Pt was seen in the ER on 04/27 c/o upper respiratory symptoms and abdominal pain. Chest XR was negative. He was negative for COVID/flu/RSV. WBC count was normal. Pt's sodium was 125. BUN and creatinine were not significantly abnormal. Pt's hyponatremia was likely related to excessively drinking beer. LFTs show a normal bilirubin, AST 45, ALT 25, alk phos 48. CRP was mildly abnormal at 3.75. Lipase was mildly elevated at 130. TSH was normal. CT of the abdomen showed no acute abnormality CT scan abdomen pelvis. 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 Diffuse thickening of the wall of the stomach most pronounced at the antrum. This is similar to CAT scan October 30, 2018. No surrounding inflammation. Diverticulosis of colon. No acute change of the bowel, Pt was given IV fluids. He was encouraged to reduce beer intake. Pt reports ongoing cough. He is a smoker and has been for many years. Pt has refused low-dose CTs in the past but is willing to do one now. Will order chest CT. Pt also c/o fatigue with weight loss, poor appetite. Will order FIT testing. He also reports some dizziness, weakness, and weight loss. Dizziness is likely multi-factoral. pt sees GI (see last endo/colo report), will re-refer back to GI. Hx of end stage liver disease. Will order labs. Denies fever, N/V, blood in stool, hemoptysis, and chest pain. Pt does continue to drink beer but reports that he has cut down on this. [facility] Medical History (Updated 05/20/24 @ 07:38 by HARSHIL Le) Cough Barretts esophagus Hx of staphylococcal infection Alcohol abuse TIA (transient ischemic attack) Portal vein thrombosis Hiatal hernia GERD (gastroesophageal reflux disease) Hyperlipidemia HTN (hypertension) Surgical History History of bunionectomy History of esophagogastroduodenoscopy (EGD) H/O colonoscopy Social History Housing: House Patient Tobacco Use Status: Current everyday Tobacco user Tobacco use type: Cigarette Cigarette Packs Per Day: 0.5 Years Smoked: 55 e-Cigarette/Vaping Use: Never Used Second Hand Smoke Exposure: No service: No Current occupational status: retired Cognitive needs: No Hearing needs: No Vision needs: No Questionnaire Thrive Questionnaire Date Thrive assessed: 02/07/22 FLOR[place]-7 AMB Questionnaire FLORENCE-7 Date FLORENCE - 7 assessed: 08/27/23 Source: Developed by Drs. Noah Bennett, Gaviota Funes, Stevan Jara and colleagues, with an educational yung from [employer]. Review of Systems Const Reports as per HPI Physical exam (Primary Care) Tobacco/Smoking Status: Tobacco use Status Tobacco use date assessed 01/02/23 05/20/24 07:30 Patient Tobacco Use Status Current everyday Tobacco 05/20/24 07:30 Tobacco use type Cigarette 05/20/24 07:30 e-Cigarette/Vaping Use Never Used 05/20/24 07:30 Thrive Assessment: Date of Thrive Assessment Date Thrive assessed 02/07/22 05/20/24 07:30 Const General: cooperative Orientation/consciousness: patient oriented x3 Neuro General: patient oriented x3 Psych Appearance: grossly normal Mental Status: mental status grossly normal Speech and movement: Clear speech present Affect: normal affect Attitude: cooperative Thought process: Normal thought process present Thought content: Normal thought content present Insight: Good insight present (Psych) Judgement: Good judgement present (Psych) Telehealth Telehealth Telehealth Platform: Telephone Location of provider rendering services: practice address Location of patient: address on file Patient Identification confirmed using: Name, : Yes Telehealth method: voice only Patient verbally consented to treatment: Yes Patient verbally consented to billing insurance company: Yes Patient informed of any privacy concerns related to visit: Yes Minutes spent on Phone/Video with Pt.: 15 Assessment and Plan Assessment & Plan (1) Smoker: Code(s): F17.200 - Nicotine dependence, unspecified, uncomplicated Plan: Chest CT ordered (2) Cough: Code(s): R05.9 - Cough, unspecified Plan: Chest CT ordered (3) Fatigue: Code(s): R53.83 - Other fatigue Plan: Labs ordered (4) Weight loss: Code(s): R63.4 - Abnormal weight loss Plan: Labs ordered (5) Dizziness: Code(s): R42 - Dizziness and giddiness Plan: Labs ordered (6) Fatigue: Code(s): R53.83 - Other fatigue Plan: Labs and FIT testing ordered (7) Cavernous transformation of portal vein: Code(s): I81 - Portal vein thrombosis Plan: Referred to GI Plan The patient agreed to the use of a medical record clerk for this encounter. Scribed for Milan Mcfarland, SOFTWARE QUALITY TEST ENGINEER- by Fabienne Frye medical record clerk, on 05/20/2024 at 07:30 EST. Orders: Orders FITS Today R53.83 - Other fatigue Comprehensive Met. Panel Today F17.200 - Nicotine dependence, unspecified, uncomplicated, R42 - Dizziness and giddiness, R53.83 - Other fatigue, R63.4 - Abnormal weight loss UA CC w/rflx Micro + Cult Today F17.200 - Nicotine dependence, unspecified, uncomplicated, R42 - Dizziness and giddiness, R53.83 - Other fatigue, R63.4 - Abnormal weight loss Magnesium Today F17.200 - Nicotine dependence, unspecified, uncomplicated, I81 - Portal vein thrombosis, R42 - Dizziness and giddiness, R53.83 - Other fatigue, R63.4 - Abnormal weight loss CT chest wo IV con Today F17.200 - Nicotine dependence, unspecified, uncomplicated, R05.9 - Cough, unspecified, R53.83 - Other fatigue Hepatitis A,B,C Profile Today F17.200 - Nicotine dependence, unspecified, uncomplicated, R42 - Dizziness and giddiness, R53.83 - Other fatigue, R63.4 - Abnormal weight loss Erythrocyte Sedimentation Rate Today F17.200 - Nicotine dependence, unspecified, uncomplicated, R42 - Dizziness and giddiness, R53.83 - Other fatigue, R63.4 - Abnormal weight loss HIV Ab/Ag Today F17.200 - Nicotine dependence, unspecified, uncomplicated, R42 - Dizziness and giddiness, R53.83 - Other fatigue, R63.4 - Abnormal weight loss Vitamin B12 and Folate Today F17.200 - Nicotine dependence, unspecified, uncomplicated, I81 - Portal vein thrombosis, R42 - Dizziness and giddiness, R53.83 - Other fatigue, R63.4 - Abnormal weight loss Referrals Gastroenterology Referral I81 - Portal vein thrombosis, R63.4 - Abnormal weight loss Coding Level of Care Code Tele Est Pt Level 4 (87362) Diagnoses Smoker F17.200 Cough R05.9 Fatigue R53.83 Weight loss R63.4 Dizziness R42 Cavernous transformation of portal vein I81
== END 2024-05-20 12:49 | disposition home or self-care (01) ==
LOC: HO.HMCC 08:14
PROVIDERS: PCP Nurse Practitioner Family; Visit Provider Nurse Practitioner Family
DX: R05.9 Cough, unspecified (principal); F17.210 Nicotine dependence, cigarettes, uncomplicated; R53.83 Other fatigue; R63.4 Abnormal weight loss; R42 Dizziness and giddiness; I81 Portal vein thrombosis

== ENCOUNTER → 2024-05-20 08:14 | Outpatient (BNVA) | payer MEDICARE, SELFPAY | PROVIDERS: PCP Nurse Practitioner Family; Visit Provider Nurse Practitioner Family | DX: I81 Portal vein thrombosis (principal); F17.200 Nicotine dependence, unspecified, uncomplicated; R05.9 Cough, unspecified; R53.83 Other fatigue; R63.4 Abnormal weight loss; R42 Dizziness and giddiness ==

== ENCOUNTER 2024-05-20 10:52 | Outpatient (REF) | payer MEDICARE, SELFPAY ==
[2024-05-20 13:54] LABS: Alanine Aminotransferase 18 U/L (0-40); Alkaline Phosphatase 45 U/L (39-117); Anion Gap 15 (12-20); Aspartate Amino Transferase 28 U/L (5-37); Bilirubin Total 0.4 mg/dL (0.0-1.0); Blood Urea Nitrogen 17 mg/dL (9-16); Calcium 9.1 mg/dL (8.4-10.2); Carbon Dioxide 21 mmol/L (22-29); Chloride 104 mmol/L (96-108); Estimated Glomerular Filt Rate 50; Glucose Random 167 mg/dL (60-115); Magnesium 0.9 mg/dL (1.6-2.6); Potassium 4.5 mmol/L (3.3-5.1); Sodium 135 mmol/L (135-145); Total Protein 7.1 g/dL (6.5-8.0)
[2024-05-20 14:04] LABS: HBS Num1 0.21 mIU/mL (0-7.99); HBc Num1 0.11 S/CO (0.00-0.79); HBsAGNum1 0.31 S/CO (0.00-0.99); HIV AB/AG Nonreactive (Nonreactive); HIV Num 1 0.05 S/CO (0.00-0.99); Hepatitis A Antibody IgM 0.36 Index (0-0.79); Hepatitis B Core Antibody Nonreactive (Nonreactive); Hepatitis B Surface Antigen Negative (Negative); ~HepC Num1 0.09 S/CO (0.00-0.79); ~Hepatitis A Antibody IgM Nonreactive (Nonreactive); ~Hepatitis B Surface Antibody NONREACTIVE (Nonreactive); ~Hepatitis C Antibody Nonreactive (Nonreactive)
[2024-05-20 14:16] LABS: Erythrocyte Sedimentation Rate 10 MM/HR (0-15); Folate > 20.0 ng/mL (> or = 4.0); Vitamin B12 649 pg/mL (200-900)
== END 2024-05-20 10:53 | disposition home or self-care (01) ==
LOC: HO.HMGCLDS 10:52
PROVIDERS: PCP Nurse Practitioner Family; Visit Provider Nurse Practitioner Family
DX: F17.200 Nicotine dependence, unspecified, uncomplicated (principal); R42 Dizziness and giddiness; R63.4 Abnormal weight loss; I81 Portal vein thrombosis; R53.83 Other fatigue
CPT/HCPCS: 36415; 80053; 82607; 82746; 83735; 85652; 86704; 86706; 86709; 86803; 87340; 87389

== ENCOUNTER 2024-05-20 15:38 | Emergency (ER) | payer MEDICARE, SELFPAY ==
--- NOTE | 2024-05-20 17:03 | PC.NURSE ---
left without triage
== END 2024-05-20 18:38 | disposition left against medical advice (07) ==
PROVIDERS: Emergency Provider Emergency Medicine; PCP Nurse Practitioner Family
DX: Z76.0 Encounter for issue of repeat prescription (principal)

== ENCOUNTER 2024-05-21 08:53 | Emergency (ER) | payer MEDICARE, SELFPAY ==
[2024-05-21 08:55] VITALS: BP 141/86; PULSE 113; RESP 18; TEMP 36.3; O2SAT 98; BMI 23.2
[2024-05-21 09:14] LABS: MANUAL DIFF FLAG NO
[2024-05-21 09:19] LABS: Basophils Absolute Auto 0.1 X10*3/uL (0.0-0.2); Basophils Percent Auto 0.6 % (0-2); Eosinophils Absolute Auto 0.2 X10*3/uL (0.0-0.4); Eosinophils Percent Auto 1.6 % (0-4); Hematocrit 37.7 % (42.0-52.0); Imm Gran Abs Auto 0.11 X10*3/uL (0.00-0.03); Lymphocytes Absolute Auto 2.6 X10*3/uL (1.2-4.9); Mean Corpuscular HGB Conc 34.5 g/dl (31.0-36.0); Mean Corpuscular Hemoglobin 30.6 pg (27.0-33.0); Mean Corpuscular Volume 88.7 fL (80.0-98.0); Mean Platelet Volume 9.1 fL (9.4-12.4); Monocytes Absolute Auto 1.3 X10*3/uL (0.1-1.2); Monocytes Percent Auto 11.5 % (2-11); Neutrophils Absolute Auto 6.7 x10*3/uL (2.0-8.3); Neutrophils Percent Auto 61.3 % (45-73); Platelet Count 456 X10*3/uL (160-400); Red Blood Count 4.25 X10*6/uL (4.60-5.80); Red Cell Distribution Width 15.1 % (11.0-16.0); White Blood Count 10.9 X10*3/uL (4.8-10.8)
--- NOTE | 2024-05-21 09:36 | ED_ITS ---
HPI - Recheck/Abnormal Lab/Rx General Chief Complaint: Recheck/Abnormal Lab/Rx Stated Complaint: magnesium low Time Seen by Provider: 05/21/24 09:35 Source: patient Mode of arrival: ambulatory Limitations: no limitations History of Present Illness HPI narrative: 73-year-old male past medical history significant for alcoholism seen here earlier this month he also has a history of portal vein thrombosis he is a smoker he is on Coumadin also has history of hyperlipidemia acid reflux and hypertension. Patient was seen by his primary care doctor had some routine labs done and found to have a low magnesium level. Patient still has some dizziness he denies any fevers chills he denies falling he has had he states he is able to ambulate Related Data Home Medications ?Medication ?Instructions ?Recorded ?Confirmed ferrous [id number] 1 cap PO DAILY 07/15/23 08/27/23 capsule Previous Rx's ?Medication ?Instructions ?Recorded clobetasol 0.05 % topical cream 1 appl topical BID 2 weeks #30 10/16/22 grams docusate sodium 100 mg capsule 100 mg PO BID 90 days #180 caps 01/17/23 omeprazole 20 mg capsule,delayed 20 mg PO DAILY #90 caps 09/21/23 release lisinopril 40 mg tablet 40 mg PO DAILY 90 days #90 tabs 02/16/24 nifedipine 30 mg tablet,extended 30 mg PO DAILY #90 tabs 02/16/24 release atorvastatin 20 mg tablet 20 mg PO DAILY #90 tabs 03/09/24 fenofibrate nanocrystallized 145 145 mg PO DAILY #90 tabs 03/09/24 mg tablet magnesium chloride 71.5 mg 71.5 mg PO BID Low magnesium #60 05/21/24 (magnesium chloride) tabs tablet,delayed release (Slow-Mag) Allergies Allergy/AdvReac Type Severity Reaction Status Date / Time No Known Allergies Allergy Verified 05/21/24 08:59 [No Known Allergies*] Review of Systems 2 Review of Systems: Review of systems: General: Dizziness Patient denies any fever chills recent illness or falls Musculoskeletal: Denies back pain or body aches or other injuries HEENT: denies headache, runny nose, ear pain Respiratory: denies shortness of breath, cough Cardiovascular: no chest pain or palpitations : denies dysuria, frequency Abdomen: no nausea vomiting denies abdominal pain Extremities: no swelling, no pain Skin: no diaphoresis Yes all other systems are reviewed and are negative PMFSH Past Medical History Medical History (Updated 05/21/24 @ 09:49 by Ryan Shaw DO) Cough Barretts esophagus Hx of staphylococcal infection Alcohol abuse TIA (transient ischemic attack) Portal vein thrombosis Hiatal hernia GERD (gastroesophageal reflux disease) Hyperlipidemia HTN (hypertension) Surgical History History of bunionectomy History of esophagogastroduodenoscopy (EGD) H/O colonoscopy Social History Social History Housing: House Alcohol intake: current Alcohol intake frequency: 3 or more drinks per day Alcohol type: beer Patient Tobacco Use Status: Current everyday Tobacco user Tobacco use type: Cigarette Cigarette Packs Per Day: 0.5 Years Smoked: 55 Smoked in Last 30 Days: Yes e-Cigarette/Vaping Use: Never Used Second Hand Smoke Exposure: No Use of substances other than those prescribed or required for medical reasons: No Advance Directives: Yes Advance Directives Information Provided: Yes Advance Directives on File: No Do you have a plan to hurt others: No Plan service: No Current occupational status: retired Cognitive needs: No Hearing needs: No Vision needs: No Physical Exam 2 Vital Signs: Vital Signs: Last Vital Signs Temp 97.4 F 05/21/24 08:55 Pulse 89 05/21/24 10:50 Resp 15 05/21/24 10:50 BP 117/74 05/21/24 10:50 Pulse Ox 93 05/21/24 10:50 O2 Del Method Room Air 05/21/24 10:50 BMI result Body Mass Index 23.2 Neurological exam: CN II- XII tested. Patient is alert and oriented to person place and time. Patient has no dysphagia or dysarthia, denies good vision in all four vision morrow no nystagmus on exam, good strength to upper and lower extremities with normal reflexes to brachioradialis, wrist, patella and achilles. He was able to do a squat the room walk on his heels his toes and walk around the room he had no reproducible dizziness Negative romberg, good finger to nose and heel to [place]. General: Well-appearing well-nourished in no signs of distress HEENT: Normocephalic atraumatic Neck: No signs of JVD, no masses no tenderness or lymphadenopathy Cardiovascular: Regular rate and rhythm Respiratory: Clear to auscultation bilaterally Abdomen: Soft nontender no masses Extremities: Normal pedal pulses no signs of edema Skin: Dry warm no rashes Back: No tenderness full ROM Course Course Course Narrative: 2 g of magnesium infused we will recheck the magnesium at 12:15 and reassess. Reevaluation(s) Reevaluation #1: Magnesium repleted. I will send home. Educated on correct medication fresh fruit and vegetables. She is okay with the plan to go home. Time: 13:25 Medications Administered Discontinued Medications Generic Name Dose Route Start Last Admin Trade Name Shaina PRN Reason Stop Dose Admin Sodium Chloride 1,000 mls @ 999 mls/hr 05/21/24 09:45 05/21/24 10:11 Ns IV 05/21/24 10:45 999 mls/hr .Q1H1M DELICIA Administration Magnesium Sulfate 2 gm in 50 mls @ 25 mls/hr 05/21/24 09:35 05/21/24 10:10 Magnesium Sulfate/H2o IV 05/21/24 11:34 25 mls/hr ONCE ONE Administration Medical Decision Making Medical Decision Making [facility] Narrative: I will replete magnesium while on checking for new results give the patient fluids and reassess Differential Diagnosis Differential Diagnoses: The differential diagnosis associated with the presentation includes Dizziness dehydration electrolyte abnormality medication effect alcoholism Lab Data [facility] Lab Attestation statement: I reviewed the patient's lab results. Labs do show a mildly elevated lipase as well as a creatinine I will give the patient fluids he has no abdominal pain 05/21/24 09:06 05/21/24 09:06 Labs: Lab Results 05/21/24 05/21/24 Range/Units 09:06 12:03 WBC 10.9 H (4.8-10.8) X10*3/uL RBC 4.25 L (4.60-5.80) X10*6/uL Hgb 13.0 L (14.0-18.0) g/dl Hct 37.7 L (42.0-52.0) % MCV 88.7 (80.0-98.0) fL MCH 30.6 (27.0-33.0) pg MCHC 34.5 (31.0-36.0) g/dl RDW 15.1 (11.0-16.0) % Plt Count 456 H D (160-400) X10*3/uL MPV 9.1 L (9.4-12.4) fL Immature Gran % (Auto) 1.0 H (0.0-0.4) % Neut % (Auto) 61.3 (45-73) % Lymph % (Auto) 24.0 (20-40) % [place] % (Auto) 11.5 H (2-11) % Eos % (Auto) 1.6 (0-4) % Baso % (Auto) 0.6 (0-2) % Lymph # (Auto) 2.6 (1.2-4.9) X10*3/uL [place] # (Auto) 1.3 H (0.1-1.2) X10*3/uL Eos # (Auto) 0.2 (0.0-0.4) X10*3/uL Baso # (Auto) 0.1 (0.0-0.2) X10*3/uL Abs Immat Gran (auto) 0.11 H (0.00-0.03) X10*3/uL Absolute Neuts (auto) 6.7 (2.0-8.3) x10*3/uL Absolute Nucleated RBC 0.000 (0.0-0.012) X10*3/uL Nucleated RBC % (auto) 0.0 (0.0-0.2) /100WBC Sodium 139 (135-145) mmol/L Potassium 4.6 (3.3-5.1) mmol/L Chloride 106 (96-108) mmol/L Carbon Dioxide 22 (22-29) mmol/L Anion Gap 16 (12-20) BUN 15 (9-16) mg/dL Creatinine 1.32 (0.5-1.4) mg/dL Estim Creat Clear Calc 41.7 Estimated GFR 53 Random Glucose 121 H (60-115) mg/dL Calcium 9.3 (8.4-10.2) mg/dL Magnesium 0.9 L* 1.7 (1.6-2.6) mg/dL Total Bilirubin 0.5 (0.0-1.0) mg/dL Direct Bilirubin 0.2 (0.0-0.5) mg/dL AST 35 (5-37) U/L ALT 20 (0-40) U/L Alkaline Phosphatase 47 (39-117) U/L Total Protein 7.2 (6.5-8.0) g/dL Albumin 4.1 (3.5-5.0) g/dL Lipase 87 H (8-78) U/L Discharge Plan Discharge Clinical Impression: Hypomagnesemia, Acute dehydration, CHAS (acute kidney injury) Patient Disposition: Home, Self-Care Instructions: Dehydration (ED), Acute Kidney Injury (DC), Hypomagnesemia (ED) Additional Instructions: You were seen today for low magnesium which was repleted IV. You magnesium did normalize please eat fresh fruits and fresh vegetables to get magnesium backup. Please call follow up with her doctor Prescriptions: New Slow-Mag 71.5 mg tablet,delayed release (DR/EC) 71.5 mg PO BID Qty: 60 0RF No Action clobetasol 0.05 % cream 1 appl topical BID 14 Days Qty: 30 2RF docusate sodium 100 mg capsule 100 mg PO BID 90 Days Qty: 180 1RF omeprazole 20 mg capsule,delayed release(DR/EC) 20 mg PO DAILY Qty: 90 1RF nifedipine 30 mg tablet extended release 30 mg PO DAILY Qty: 90 1RF lisinopril 40 mg tablet 40 mg PO DAILY 90 Days Qty: 90 1RF fenofibrate nanocrystallized 145 mg tablet 145 mg PO DAILY Qty: 90 1RF atorvastatin 20 mg tablet 20 mg PO DAILY Qty: 90 1RF Iron Complex/C/B12 Capsule 1 cap PO DAILY Print Language: Bolivian
[2024-05-21 09:42] LABS: Alanine Aminotransferase 20 U/L (0-40); Albumin Level 4.1 g/dL (3.5-5.0); Alkaline Phosphatase 47 U/L (39-117); Anion Gap 16 (12-20); Aspartate Amino Transferase 35 U/L (5-37); Bilirubin Direct 0.2 mg/dL (0.0-0.5); Bilirubin Total 0.5 mg/dL (0.0-1.0); Blood Urea Nitrogen 15 mg/dL (9-16); Calcium 9.3 mg/dL (8.4-10.2); Carbon Dioxide 22 mmol/L (22-29); Chloride 106 mmol/L (96-108); Creatinine Clr Calc Pharmacy 41.7; Estimated Glomerular Filt Rate 53; Glucose Random 121 mg/dL (60-115); Lipase 87 U/L (8-78); Magnesium 0.9 mg/dL (1.6-2.6); Potassium 4.6 mmol/L (3.3-5.1); Sodium 139 mmol/L (135-145); Total Protein 7.2 g/dL (6.5-8.0)
[2024-05-21] MEDS: Magnesium Sulfate/H2O 2 GM/50 ML PIGGYBACK IV (10:10)
[2024-05-21] MEDS: 0.9 % Sodium Chloride 1,000 ML 999 ML IV (10:11)
[2024-05-21 10:50] VITALS: BP 117/74; PULSE 89; RESP 15; O2SAT 93
[2024-05-21 12:42] LABS: Magnesium 1.7 mg/dL (1.6-2.6)
[2024-05-21 14:02] VITALS: BP 171/94; PULSE 92; RESP 16; TEMP 36.6; O2SAT 97
== END 2024-05-21 14:10 | disposition home or self-care (01) ==
PROVIDERS: Emergency Provider Student in an Organized Health Care Education/Training Program; PCP Nurse Practitioner Family
DX: E83.42 Hypomagnesemia (principal); E86.0 Dehydration; N17.9 Acute kidney failure, unspecified; I10 Essential (primary) hypertension; E78.5 Hyperlipidemia, unspecified; F17.210 Nicotine dependence, cigarettes, uncomplicated; Z79.899 Other long term (current) drug therapy
CPT/HCPCS: 36415; 80048; 80076; 83690; 83735; 85025; 96365; 96366; 99284; J3475

== ENCOUNTER 2024-06-18 07:22 | Outpatient (REF) | payer MEDICARE, SELFPAY | END 2024-06-18 07:23 | disposition home or self-care (01) | LOC: HO.CT 07:22 | PROVIDERS: PCP Nurse Practitioner Family; Visit Provider Nurse Practitioner Family | DX: R05.9 Cough, unspecified (principal); R53.83 Other fatigue; F17.200 Nicotine dependence, unspecified, uncomplicated | CPT/HCPCS: 71250 ==

== ENCOUNTER → 2024-06-18 07:23 | Outpatient (BNV) | payer MEDICARE, SELFPAY | PROVIDERS: PCP Nurse Practitioner Family; Visit Provider Radiology Diagnostic Radiology | DX: R05.9 Cough, unspecified (principal); R53.83 Other fatigue; F17.200 Nicotine dependence, unspecified, uncomplicated | CPT/HCPCS: 71250 ==

== ENCOUNTER 2024-09-09 10:05 | Outpatient (AMB) | payer MEDICARE, SELFPAY ==
[2024-09-09 10:07] VITALS: BP 138/82; PULSE 89; O2SAT 97; BMI 24.0
--- NOTE | 2024-09-09 10:07 | A.OFFPC_ITS ---
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 Accompanied by: Self / Same As Patient Allergies No Known Allergies [No Known Allergies*] Allergy (Verified 09/09/24 10:08) Medication List - Last Reconciled 09/09/24 by LAMAR Le- atorvastatin 20 mg PO DAILY clobetasol 0.05% 1 appl topical BID 2 weeks docusate sodium 100 mg PO BID 90 days fenofibrate nanocrystallized 145 mg PO DAILY ferrous [id number] conc 1 cap PO DAILY lisinopril 40 mg PO DAILY 90 days magnesium chloride (Slow-Mag) 71.5 mg PO BID nifedipine ER 30 mg PO DAILY omeprazole 20 mg PO DAILY Tobacco use date assessed: 09/09/24 Fall risk assessment: No Falls in past year Last assessed Fall Risk: 09/09/24 Dental Screening Dental Screen Date: 09/09/24 Did you have a dental visit in the last 12 months?: Yes Did you have a dental problem in the last 6 months where you did not have access to dental care?: No Was dental information given to patient?: Patient has dentist HPI PE HPI Details History of Present Illness The patient is a 74-year-old male presenting for a routine physical examination. 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 He remains under regular gastroenterology care with an upcoming appointment mentioned. His overall health monitoring includes plans to refer him to a low-dose CAT scan program in July 2025. The patient denies any symptoms such as chest pain, increased shortness of breath, blood in stool, constipation, diarrhea, numbness, tingling, abdominal pain, depression, anxiety, suicidal ideation, or homicidal ideation. Very faint systolic murmur, pt refuses a echo Health Maintenance - Regular follow-up with Gastroenterolog y. - No further colon screening required as per Gastroenterology's recommendation. - Scheduled referral to low-dose CAT sca n program in July 2025 for lung screening. Social History Review of Systems - Cardiovascular: Denies chest pain, inc reased shortness of breath. - Gastrointestinal: Denies blood in stoo l, constipation, diarrhea, abdominal pain. - Neurological: Denies numbness, tinglin g. - Psychiatric: Denies ongoing depression , anxiety, suicidal ideation, homicidal ideation. Physical Exam General: Cooperative, healthy appearing, comfortable, no acute distress and well developed Orientation: Patient oriented x3 Limitations: No limitations Head: Normal to inspection Ears: Hearing grossly normal bilaterally Nose: Normal external nose present Face and sinus: Normal facial exam Eyes: Appearance normal, both eyes and all related structures Neck: Normal visual inspection and Yes full ROM Respiratory: Normal respiratory effort and able to speak in complete sentences. Clear to auscultation bilaterally Cardiovascular: Regular rate and rhythm. S1 and S2, very faint murmur in aortic region GI: Normal to inspection. Soft to palpation and nontender Skin: No rashes or lesions noted Neuro: Patient oriented x3 Extremities: Normal to inspection Results Plan - Monitor for any potential changes in t he aortic valve, murmur; the patient declines echocardiography. - Continue regular follow-up with gastro enterology. - Refer to a low-dose CAT scan program i n July 2025 as part of lung health monitoring. Patient was informed and verbally consented to the use of an ambient scribe for clinic note documentation during this visit. Discussion Notes In our discussion, I acknowledged the patient's decision to refrain from undergoing an echocardiogram at this time, given the faint nature of the aortic valve murmur and slightly diminished heart sounds. I reiterated the importance of regular gastroenterology follow-ups and confirmed no further colon screening is needed as per his gastroenterology specialist. We discussed the referral to a low-dose CAT scan program in July 2025, and I explained its role in monitoring lung health. The patient expressed understanding and agreement with the plan. Patient Instructions - Continue to follow up with gastroenter ologist as scheduled. - Attend the appointment for the low-dos e CAT scan in July 2025. - Monitor for any new symptoms such as c hest pain or difficulty breathing, and seek care if needed. (note: encouraged pt to follow up with me in 6 months, pt declined, wanted in 1 year) [facility] Medical History Alcoholic liver disease Cirrhosis Cough Barretts esophagus Hx of staphylococcal infection Alcohol abuse TIA (transient ischemic attack) Portal vein thrombosis Hiatal hernia GERD (gastroesophageal reflux disease) Hyperlipidemia HTN (hypertension) Surgical History History of bunionectomy History of esophagogastroduodenoscopy (EGD) H/O colonoscopy Social History Housing: House Alcohol intake: current Alcohol intake frequency: 3 or more drinks per day Alcohol type: beer Patient Tobacco Use Status: Current everyday Tobacco user Tobacco use type: Cigarette Cigarette Packs Per Day: 0.5 Years Smoked: 55 e-Cigarette/Vaping Use: Never Used Second Hand Smoke Exposure: No service: No Current occupational status: retired Cognitive needs: No Hearing needs: No Vision needs: No Questionnaire PHQ-9 Over the last 2 weeks, how often have you been bothered by any of the following problems? 1. Little interest or pleasure in doing things: not at all 2. Feeling down, depressed, or hopeless: not at all 3. Trouble falling or staying asleep, or sleeping too much: not at all 4. Feeling tired or having little energy: not at all 5. Poor appetite or overeating: not at all 6. Feeling bad about yourself - or that you are a failure or have let yourself or your family down: not at all 7. Trouble concentrating on things, such as reading the newspaper or watching television: not at all 8. Moving or speaking so slowly that other people could have noticed. Or the opposite - being so fidgety or restless that you have been moving around a lot more than usual: not at all 9. Thoughts that you would be better off or of hurting yourself in some way: not at all Total score: 0 Depression Screening Interpretation: Negative Depression Screening Done: Yes 74846 - PHQ-9 Billing: Yes Source: Developed by Drs. Noah Bennett, Gaviota Funes, Stevan Jara and colleagues, with an educational yung from [employer]. Thrive Questionnaire Date Thrive assessed: 09/09/24 I am a: Patient What is your living situation today?: I have a steady place to live Within the past 12 months, did the food you bought not last and you didn't have the money to get more?: Never true Within the past 12 months, did you worry whether your food would run out before you got money to buy more?: Never true Do you have trouble paying for medicines?: No Do you have trouble getting transportation to medical appointments?: No Do you have trouble paying your heating and electricity bill?: No Do you have trouble taking care of your child, family member or friend?: No Do you have trouble with day-to-day activities such as bathing, preparing meals, shopping, managing finances, etc.?: No Are you currently unemployed and looking for a job?: No Are you interested in more education?: No Please select the resources that you would like help with: None Currently or been in a relationship where the following occur: No concerns reported THRIVE Score: 0 AUDIT C Alcohol Use Questionnaire (AUDIT-C) 1. How often do you have a drink containing alcohol?: 4 or more times a week 2. How many drinks containing alcohol do you have on a typical day when you are drinking?: 3 or 4 3. How often do you have six or more drinks on one occasion?: Never Total Score: 5 Score Reviewed/Action Taken: Yes FLORENCE-7 AMB Questionnaire FLORENCE-7 Date FLORENCE - 7 assessed: 09/09/24 Feeling nervous, anxious, or on edge: 0 = Not at all Not being able to stop or control worryin = Not at all Worrying too much about different things: 0 = Not at all Trouble relaxin = Not at all Being so restless that it is hard to sit still: 0 = Not at all Becoming easily annoyed or irritable: 0 = Not at all Feeling afraid as if something awful might happen: 0 = Not at all Total FLORENCE-7 score (0-4 normal; 5-9 mild; 10-14 moderate; 15-21 severe): 0 Source: Developed by Drs. Noah Bennett, Gaviota Funes, Stevan Jara and colleagues, with an educational yung from [employer]. FLORENCE-7 Assessment Billing FLORENCE-7 Assessment Tool: FLORENCE-7 Assessment 07327 Physical exam (Primary Care) Vital Signs: Last Vital Signs Pulse 89 09/09/24 10:07 BP 138/82 09/09/24 10:07 Pulse Ox 97 09/09/24 10:07 BMI result Body Mass Index 24.0 Tobacco/Smoking Status: Tobacco use Status Tobacco use date assessed 09/09/24 09/09/24 10:09 Patient Tobacco Use Status Current everyday Tobacco 09/09/24 10:09 Tobacco use type Cigarette 09/09/24 10:09 e-Cigarette/Vaping Use Never Used 09/09/24 10:09 PHQ-9: PHQ-9 Score PHQ-9: Total score 0 09/09/24 10:09 Depression Screening Interpretation: Negative Thrive Assessment: Date of Thrive Assessment Date Thrive assessed 09/09/24 09/09/24 10:09 Currently or been in a relationship where the following occur: No concerns reported Coding Level of Care Code Est Pt Prev Care >65y(78913) Diagnoses Physical exam Z00.00 Screening PSA (prostate specific antigen) Z12.5 Additional Codes FLORENCE-7 Assessment Billing - FLORENCE-7 Assessment Tool: FLORENCE-7 Assessment 51773 ([id number]) PHQ-9 - 34913 - PHQ-9 Billing: Yes ([id number]) Assessment & Plan Assessment & Plan (1) Physical exam: Code(s): Z00.00 - Encounter for general adult medical examination without abnormal findings Category: Medical (2) Screening PSA (prostate specific antigen): Code(s): Z12.5 - Encounter for screening for malignant neoplasm of prostate Category: Medical Plan . Orders: Orders Complete Blood Count Auto Diff Today Z00.00 - Encounter for general adult medical examination without abnormal findings Comprehensive [place]. Panel Fast Today Z00.00 - Encounter for general adult medical examination without abnormal findings TSH reflex Free T4 Today Z00.00 - Encounter for general adult medical examination without abnormal findings UA CC w/rflx Micro + Cult Today Z00.00 - Encounter for general adult medical examination without abnormal findings Lipid Panel Today Z00.00 - Encounter for general adult medical examination without abnormal findings Prostate Specific Antigen Scr Today Z12.5 - Encounter for screening for malignant neoplasm of prostate Medications: Refilled clobetasol 0.05% 1 appl topical BID 2 weeks 30 grams 2RF
== END 2024-09-09 10:49 | disposition home or self-care (01) ==
PROVIDERS: PCP Nurse Practitioner Family; Visit Provider Nurse Practitioner Family
DX: Z00.00 Encounter for general adult medical examination without abnormal findings (principal); Z12.5 Encounter for screening for malignant neoplasm of prostate

== ENCOUNTER → 2024-09-09 10:05 | Outpatient (BNVA) | payer MEDICARE, SELFPAY | PROVIDERS: PCP Nurse Practitioner Family; Visit Provider Nurse Practitioner Family | DX: Z00.00 Encounter for general adult medical examination without abnormal findings (principal); E78.5 Hyperlipidemia, unspecified; I10 Essential (primary) hypertension; K21.9 Gastro-esophageal reflux disease without esophagitis; K74.60 Unspecified cirrhosis of liver | CPT/HCPCS: 96127; 99397 ==

== ENCOUNTER 2025-01-11 08:49 | Outpatient (REF) | payer MEDICARE, SELFPAY ==
[2025-01-11 10:25] LABS: MANUAL DIFF FLAG NO
[2025-01-11 10:28] LABS: Basophils Absolute Auto 0.1 X10*3/uL (0.0-0.2); Basophils Percent Auto 0.8 % (0-2); Eosinophils Absolute Auto 0.2 X10*3/uL (0.0-0.4); Eosinophils Percent Auto 2.4 % (0-4); Hematocrit 43.7 % (42.0-52.0); Hemoglobin 14.3 g/dl (14.0-18.0); Imm Gran Abs Auto 0.15 X10*3/uL (0.00-0.03); Imm Gran Pct Auto 1.5 % (0.0-0.4); Lymphocytes Absolute Auto 3.5 X10*3/uL (1.2-4.9); Lymphocytes Percent Auto 34.8 % (20-40); Mean Corpuscular HGB Conc 32.7 g/dl (31.0-36.0); Mean Corpuscular Volume 91.6 fL (80.0-98.0); Mean Platelet Volume 10.1 fL (9.4-12.4); Monocytes Absolute Auto 1.1 X10*3/uL (0.1-1.2); Neutrophils Absolute Auto 4.9 x10*3/uL (2.0-8.3); Neutrophils Percent Auto 49.5 % (45-73); Platelet Count 384 X10*3/uL (160-400); Red Blood Count 4.77 X10*6/uL (4.60-5.80); Red Cell Distribution Width 16.7 % (11.0-16.0)
[2025-01-11 11:13] LABS: Alanine Aminotransferase 20 U/L (0-40); Albumin Level 4.4 g/dL (3.5-5.0); Alkaline Phosphatase 49 U/L (39-117); Anion Gap 14 (12-20); Aspartate Amino Transferase 35 U/L (5-37); Bilirubin Total 0.6 mg/dL (0.0-1.0); Blood Urea Nitrogen 21 mg/dL (9-16); Calcium 9.5 mg/dL (8.4-10.2); Carbon Dioxide 21 mmol/L (22-29); Chloride 104 mmol/L (96-108); Cholesterol 165 mg/dL (<200); Estimated Glomerular Filt Rate 48; Glucose Fasting 115 mg/dL (60-99); HDL Cholesterol 69 mg/dL (>40); LDL Cholesterol Calculated 73 mg/dL (<100); Magnesium 1.1 mg/dL (1.6-2.6); Potassium 4.3 mmol/L (3.3-5.1); Sodium 135 mmol/L (135-145); TSH reflex Free T4 1.12 uIU/mL (0.32-4.0); Total Protein 7.5 g/dL (6.5-8.0); Triglycerides 118 mg/dL (<150)
[2025-01-11 11:41] LABS: Prostate Specific Antigen Scr 1.18 ng/mL (<0.05-4.0)
== END 2025-01-11 08:50 | disposition home or self-care (01) ==
LOC: HO.HMGCLDS 08:49
PROVIDERS: PCP Nurse Practitioner Family; Visit Provider Nurse Practitioner Family
DX: Z00.00 Encounter for general adult medical examination without abnormal findings (principal); Z12.5 Encounter for screening for malignant neoplasm of prostate; E83.42 Hypomagnesemia
CPT/HCPCS: 36415; 80053; 80061; 83735; 84153; 84443; 85025

== ENCOUNTER 2025-01-15 09:23 | Outpatient (REF) | payer MEDICARE, SELFPAY ==
[2025-01-15 11:43] LABS: Alanine Aminotransferase 18 U/L (0-40); Albumin Level 4.2 g/dL (3.5-5.0); Alkaline Phosphatase 45 U/L (39-117); Anion Gap 16 (12-20); Aspartate Amino Transferase 29 U/L (5-37); Bilirubin Total 0.5 mg/dL (0.0-1.0); Blood Urea Nitrogen 21 mg/dL (9-16); Calcium 9.3 mg/dL (8.4-10.2); Carbon Dioxide 20 mmol/L (22-29); Chloride 107 mmol/L (96-108); Estimated Glomerular Filt Rate 55; Glucose Random 143 mg/dL (60-115); Potassium 3.9 mmol/L (3.3-5.1); Sodium 139 mmol/L (135-145); Total Protein 7.1 g/dL (6.5-8.0)
[2025-01-15 13:11] LABS: Magnesium 1.1 mg/dL (1.6-2.6)
== END 2025-01-15 09:24 | disposition home or self-care (01) ==
LOC: HO.HMGCLDS 09:23
PROVIDERS: PCP Nurse Practitioner Family; Visit Provider Nurse Practitioner Family
DX: R79.0 Abnormal level of blood mineral (principal); R79.89 Other specified abnormal findings of blood chemistry
CPT/HCPCS: 36415; 80053; 83735

== ENCOUNTER 2025-01-18 09:14 | Outpatient (REF) | payer MEDICARE, SELFPAY ==
[2025-01-18 13:38] LABS: Rheumatoid Factor 18.1 IU/mL (<15.0)
[2025-01-18 13:52] LABS: Alanine Aminotransferase 21 U/L (0-40); Albumin Level 4.4 g/dL (3.5-5.0); Alkaline Phosphatase 43 U/L (39-117); Anion Gap 14 (12-20); Aspartate Amino Transferase 42 U/L (5-37); Bilirubin Total 0.4 mg/dL (0.0-1.0); Blood Urea Nitrogen 31 mg/dL (9-16); C Reactive Protein 3.11 mg/dL (< or = 0.50); Calcium 9.6 mg/dL (8.4-10.2); Carbon Dioxide 23 mmol/L (22-29); Chloride 103 mmol/L (96-108); Estimated Glomerular Filt Rate 50; Glucose Random 133 mg/dL (60-115); Magnesium 1.3 mg/dL (1.6-2.6); Potassium 3.9 mmol/L (3.3-5.1); Sodium 136 mmol/L (135-145); Total Protein 7.5 g/dL (6.5-8.0)
[2025-01-18 14:03] LABS: Uric Acid 4.8 mg/dL (3.4-7.0)
[2025-01-18 14:16] LABS: Erythrocyte Sedimentation Rate 25 MM/HR (0-15)
[2025-01-19 04:56] LABS: Lyme Abs Screen <0.90 index
[2025-01-20 08:34] LABS: Anti Nuclear Antibody Screen NEGATIVE (NEGATIVE)
[2025-01-20 11:13] LABS: Cyclic Citrullinated Peptide <16 UNITS
[2025-01-20 12:44] LABS: Complement C3 175 mg/dL (82-185)
[2025-01-20 20:03] LABS: A. Phagocytphilium DNA,RT-PCR NOT DETECTED (NOT DETECTED); Babesia Microti DNA, RT-PCR NOT DETECTED (NOT DETECTED); Borrelia Miyamotoi,DNA RT-PCR NOT DETECTED (NOT DETECTED); E.Chaffeensis DNA RT-PCR NOT DETECTED (NOT DETECTED); Lyme(Borrelia ssp)DNA RT-PCR NOT DETECTED (NOT DETECTED)
== END 2025-01-18 09:15 | disposition home or self-care (01) ==
LOC: HO.HMGCLDS 09:14
PROVIDERS: PCP Nurse Practitioner Family; Visit Provider Nurse Practitioner Family
DX: R79.0 Abnormal level of blood mineral (principal); M25.50 Pain in unspecified joint
CPT/HCPCS: 36415; 80053; 83735; 84550; 85652; 86038; 86140; 86160; 86200; 86431; 86617; 86618; 87468; 87469; 87478; 87484; 87798

== ENCOUNTER 2025-01-24 13:20 | Outpatient (REF) | payer MEDICARE, SELFPAY ==
[2025-01-24 16:45] LABS: Magnesium 1.7 mg/dL (1.6-2.6)
== END 2025-01-24 13:21 | disposition home or self-care (01) ==
LOC: HO.HMGCLDS 13:20
PROVIDERS: PCP Nurse Practitioner Family; Visit Provider Nurse Practitioner Family
DX: R79.0 Abnormal level of blood mineral (principal)
CPT/HCPCS: 36415; 83735

== ENCOUNTER 2025-02-21 07:55 | Outpatient (AMB) | payer MEDICARE, SELFPAY ==
--- NOTE | 2025-02-21 07:58 | MHC.PC.OV ---
Vital Signs 02/21/25 07:59 02/21/25 08:35 Height 5 ft 4 in Weight 137 lb BMI 23.5 BP 140/70 H 118/74 Blood Pressure Location Rt brachial Rt brachial Position Sitting Sitting Respiration 16 Pulse 86 Pulse Source Pulse Oximeter Temp 97.6 F Temp Source Oral Pulse Oximetry (%) 98 Oxygen Delivery Method Room Air Intake Visit Reasons: follow up - per rosamaria Jones Note: Pt is here today for his follow-up Allergies No Known Allergies (No Known Allergies*) Allergy (Verified 02/21/25 08:37) Medication List - Last Reconciled 02/21/25 by Rosamaria Mcfarland, FREIGHT UNLOADER-BC atorvastatin 20 mg PO DAILY clobetasol 0.05% 1 appl topical BID 2 weeks fenofibrate nanocrystallized 145 mg PO DAILY ferrous [id number] conc 1 cap PO DAILY lisinopril 40 mg PO DAILY 90 days magnesium chloride (Slow-Mag) 71.5 mg PO BID nifedipine ER 30 mg PO DAILY omeprazole 20 mg PO DAILY Tobacco use date assessed: 02/21/25 Fall risk assessment: No Falls in past year Last assessed Fall Risk: 02/21/25 Dental Screening Dental Screen Date: 02/21/25 Did you have a dental visit in the last 12 months?: No Did you have a dental problem in the last 6 months where you did not have access to dental care?: No Was dental information given to patient?: Patient declined HPI follow up - per rosamaria HPI Details Chief Complaint The patient presents for follow-up regarding hypertension, low magnesium levels, and a positive rheumatoid factor. History of Present Illness The patient is a 74-year-old male presenting with follow-up for hypertension, hypomagnesemia, and a positive rheumatoid factor. Hypertension is a chronic condition for which he is receiving ongoing management. Hypomagnesemia was identified through routine laboratory tests, and the patient is currently taking magnesium supplements to address this deficiency. He has been compliant with the treatment plan. The patient has a positive rheumatoid factor but denies any joint pain and has chosen not to consult a marketing communications assistant at this time. This will be monitored in subsequent visits. He reports heavy tobacco use and is part of a low-dose CT scan program for lung cancer screening, with the next scan due in July. The patient also consumes alcohol, though he reports a reduction in intake. Liver function tests are being monitored as part of his ongoing care. Social History - Tobacco use: Heavy smoker - Alcohol use: Continues to drink, but has reduced intake Health Maintenance - Lung cancer screening: Enrolled in low-dose CT scan program, next scan in July Review of Systems - General: Reports fatigue - Cardiovascular: Denies chest pain - Respiratory: Denies increased dyspnea - Gastrointestinal: Denies abdominal pain, blood in stool, constipation, diarrhea - Musculoskeletal: Denies joint pain Physical Exam General: Cooperative, healthy appearing, comfortable, no acute distress and well developed Orientation: Patient oriented x3 Limitations: No limitations Head: Normal to inspection Ears: Hearing grossly normal bilaterally Nose: Normal external nose present Face and sinus: Normal facial exam Eyes: Appearance normal, both eyes and all related structures Neck: Normal visual inspection and Yes full ROM Respiratory: Normal respiratory effort and able to speak in complete sentences. Clear to auscultation bilaterally Cardiovascular: Regular rate and rhythm. Normal S1 and S2 GI: Normal to inspection. Soft to palpation and nontender Skin: No rashes or lesions noted Neuro: Patient oriented x3 Extremities: Normal to inspection Results Plan The patient will maintain his current hypertension management regimen, with ongoing blood pressure monitoring. Magnesium supplementation will continue to manage hypomagnesemia, with adherence checked at follow-up appointments. The positive rheumatoid factor will be observed, and rheumatology consultation will be considered if symptoms arise. Routine laboratory tests will be performed to evaluate his general health. The patient is to remain in the low-dose CT scan program for lung cancer screening, with the next scan planned for July. Liver function will be monitored due to alcohol use, and further reduction in alcohol intake is advised. Discussion Notes I discussed with the patient the importance of continuing his current hypertension management and the need for regular blood pressure monitoring. We talked about maintaining magnesium supplementation for hypomagnesemia and the potential need for rheumatology consultation if joint symptoms develop (declined currently). I emphasized the significance of participating in the low-dose CT scan program for lung cancer screening and the importance of monitoring liver enzymes due to alcohol use. Patient Instructions - Continue taking your blood pressure medication as prescribed. - Keep taking magnesium supplements as directed. - Attend your scheduled low-dose CT scan in July. - Try to reduce your alcohol intake further. - Follow up with routine lab tests as advised. [facility] Medical History Rheumatoid arthritis Alcoholic liver disease Cirrhosis Cough Barretts esophagus Hx of staphylococcal infection Alcohol abuse TIA (transient ischemic attack) Portal vein thrombosis Hiatal hernia GERD (gastroesophageal reflux disease) Hyperlipidemia HTN (hypertension) Surgical History History of bunionectomy History of esophagogastroduodenoscopy (EGD) H/O colonoscopy Social History Housing: House Alcohol intake: current Alcohol intake frequency: 3 or more drinks per day Alcohol type: beer Patient Tobacco Use Status: Current everyday Tobacco user Tobacco use type: Cigarette Cigarette Packs Per Day: 0.5 Years Smoked: 55 e-Cigarette/Vaping Use: Never Used Second Hand Smoke Exposure: No service: No Current occupational status: retired Cognitive needs: No Hearing needs: No Vision needs: No Questionnaire Thrive Questionnaire Date Thrive assessed: 09/09/24 FLOR[place]-7 AMB Questionnaire FLORENCE-7 Date FLORENCE - 7 assessed: 09/09/24 Source: Developed by Drs. Noah Bennett, Gaviota Funes, Stevan Jara and colleagues, with an educational yung from [employer]. Physical exam (Primary Care) Vital Signs: Last Vital Signs Temp 97.6 F 02/21/25 07:59 Pulse 86 02/21/25 07:59 Resp 16 02/21/25 07:59 BP 140/70 H 02/21/25 07:59 Pulse Ox 98 02/21/25 07:59 Oxygen Delivery Method Room Air 02/21/25 07:59 BMI result Body Mass Index 23.5 Tobacco/Smoking Status: Tobacco use Status Tobacco use date assessed 02/21/25 02/21/25 08:03 Patient Tobacco Use Status Current everyday Tobacco 02/21/25 08:03 Tobacco use type Cigarette 02/21/25 08:03 e-Cigarette/Vaping Use Never Used 02/21/25 08:03 Thrive Assessment: Date of Thrive Assessment Date Thrive assessed 09/09/24 02/21/25 08:03 Coding Level of Care Code Est Pt Level 3 (67263) Diagnoses Rheumatoid arthritis M06.9 Hypertension I10 Low magnesium level R79.0 Assessment & Plan Assessment & Plan (1) Rheumatoid arthritis: Code(s): M06.9 - Rheumatoid arthritis, unspecified Category: Medical (2) Hypertension: Code(s): I10 - Essential (primary) hypertension Category: Medical (3) Low magnesium level: Code(s): R79.0 - Abnormal level of blood mineral Category: Medical Plan . Orders: Orders Complete Blood Count Auto Diff Today I10 - Essential (primary) hypertension, M06.9 - Rheumatoid arthritis, unspecified Comprehensive Charmco. Panel Fast Today I10 - Essential (primary) hypertension, M06.9 - Rheumatoid arthritis, unspecified TSH reflex Free T4 Today I10 - Essential (primary) hypertension, M06.9 - Rheumatoid arthritis, unspecified UA CC w/rflx Micro + Cult Today I10 - Essential (primary) hypertension, M06.9 - Rheumatoid arthritis, unspecified Lipid Panel Today I10 - Essential (primary) hypertension, M06.9 - Rheumatoid arthritis, unspecified Magnesium Today I10 - Essential (primary) hypertension, M06.9 - Rheumatoid arthritis, unspecified
[2025-02-21 07:59] VITALS: BP 140/70; PULSE 86; RESP 16; TEMP 36.4; O2SAT 98; BMI 23.5
[2025-02-21 08:35] VITALS: BP 118/74
== END 2025-02-21 08:38 | disposition home or self-care (01) ==
LOC: HO.HMCC 07:56
PROVIDERS: PCP Nurse Practitioner Family; Visit Provider Nurse Practitioner Family
DX: M06.9 Rheumatoid arthritis, unspecified (principal); I10 Essential (primary) hypertension; R79.0 Abnormal level of blood mineral

== ENCOUNTER → 2025-02-21 07:55 | Outpatient (BNVA) | payer MEDICARE, SELFPAY | PROVIDERS: PCP Nurse Practitioner Family; Visit Provider Nurse Practitioner Family | DX: I10 Essential (primary) hypertension (principal); M05.9 Rheumatoid arthritis with rheumatoid factor, unspecified; E83.42 Hypomagnesemia; F17.210 Nicotine dependence, cigarettes, uncomplicated | CPT/HCPCS: 99212 ==